=== PATIENT | female | born 1940 | race Caucasian/White ===

== ENCOUNTER 2018-01-27 10:39 | Inpatient (IN) ==
[2018-01-27] MEDS ORDERED: *Labetalol HCl Inj 100 MG/20 ML Vial PERIprocedural Use ONLY IV.PUSH ONE ×2 (11:54→12:10)
--- NOTE | 2018-01-27 11:54 | ED ---
HPI General Chief Complaint: Shortness of Breath/Dyspnea Stated Complaint: Weakness/Diabetic/SOB x today Time Seen by Provider: 01/27/18 11:08 Source: patient Mode of arrival: ambulatory Limitations: no limitations History of Present Illness Patient accompanied by her sister reports an episode of shortness of breath nausea diaphoresis acute in onset while riding around in a car to look at homes. Reports a history of diabetes. History of tobacco use in the past. No personal cardiac history. Diabetic. No family history of cardiac disease. States she is on a diuretic for fluid retention. Denies heart failure. On assessment of her medication she appears to have hypertension hyperlipidemia and COPD. She is on a beta-andrade. Reports medication compliance this morning. MD Complaint: Reports shortness of breath Onset (ago): hour(s) (1-2) Context: Reports other (Riding in the car looking at homes) Severity: moderate Consistency/Duration: constant Relieving factors: nothing Exacerbating factors: nothing Known history of: Reports diabetes Associated symptoms: Reports denies other symptoms Treatment prior to arrival: Reports none Related Data Home Medications Medication Instructions Recorded Confirmed L-Thyroxine 50 mcg PO DAILY 01/27/18 01/27/18 atenolol 50 mg PO DAILY 01/27/18 01/27/18 diclofenac sodium mg PO DIRECTED 01/27/18 diclofenac sodium [Voltaren] 2 g TOPICAL QID 01/27/18 01/27/18 furosemide [Lasix] 20 mg PO DAILY 01/27/18 01/27/18 glimepiride mg PO QAM 01/27/18 ipratropium-albuterol [Combivent 1 puff INHALATION QID 01/27/18 01/27/18 Respimat] liraglutide [Victoza 3-Evan] 0 SUBCUT .COMPLEX 01/27/18 01/27/18 lisinopril 20 mg PO DAILY 01/27/18 01/27/18 omeprazole 20 mg PO DAILY 01/27/18 01/27/18 pravastatin 10 mg PO DAILY 01/27/18 01/27/18 Allergies Allergy/AdvReac Type Severity Reaction Status Date / Time latex Allergy Severe rash Verified 01/27/18 10:47 levofloxacin Allergy Severe rash and Verified 01/27/18 10:47 swelling Review of Systems ROS: all other systems reviewed are negative [facility] Medical History Medical History GERD (gastroesophageal reflux disease) (Acute) HTN (hypertension) (Acute) High cholesterol (Acute) Hypothyroidism (Acute) Social History Social History Substance History: No History of Abuse Second Hand Smoke Exposure: No Smoking Status: Former smoker How Often Do You Have a Drink Containing Alcohol: Never Recent Travel in [facility] within the Last 8 Weeks: No Recent Out of Country Travel within the Last 8 Weeks: No Immunization History Tetanus Immunization: Unsure Exam Narrative Exam Narrative: CARDIOVASCULAR: Irregular, tachycardic, without murmurs, gallops , or rubs. RESPIRATORY: Breath sounds equal bilaterally. No accessory muscle use. GASTROINTESTINAL: Abdomen soft, normal bowel sounds, non-tender, nondistended. MUSCULOSKELETAL: No cyanosis, or edema. BACK: Nontender without obvious deformity. No CVA tenderness. Course Initial Documented Vital Signs Temperature 97.4 F L 01/27/18 10:48 Pulse Rate 108 H 01/27/18 10:48 Respiratory Rate 18 01/27/18 10:48 Blood Pressure 180/81 H 01/27/18 10:48 Pulse Oximetry 97 01/27/18 10:48 Last Documented Vital Signs Temperature 97.8 F 01/27/18 11:35 Pulse Rate 131 H 01/27/18 12:05 Respiratory Rate 18 01/27/18 12:05 Blood Pressure 106/48 L 01/27/18 12:05 Pulse Oximetry 93 L 01/27/18 12:05 Medical Decision Making MDM Narrative Medical decision making narrative: Originally thought we might be able to control this patient's rate with digoxin and anticoagulate with Xarelto however further evaluation of labs please be concerning for heart failure or possible pulmonary embolism with this new onset of A. fib. Spoke with Dr. Méndez who is in agreement, will admit with further workup for heart failure or possible pulmonary embolus Medical Screen Exam Complete: Yes Emergency Medical Condition: Yes Differential Diagnosis Differential Diagnosis: A. fib, acute myocardial infarction, CHF, dyspnea Medical Records Medical records reviewed: Yes I reviewed the patient's medical records. Lab Data Lab results reviewed: Yes I reviewed the patient's lab results. Result diagrams: 01/27/18 11:05 01/27/18 11:05 Lab Results 01/27/18 01/27/18 01/27/18 Range/Units 11:05 11:05 11:05 CBC w Diff Auto diff final WBC 6.8 (4.0-11.0) th/mm3 RBC 3.91 L (4.00-5.30) mil/mm3 Hgb 11.4 L (11.6-15.3) gm/dL Hct 34.3 L (35.0-46.0) % MCV 87.7 (80.0-100.0) fL MCH 29.1 (27.0-34.0) pg MCHC 33.2 (32.0-36.0) % RDW 15.7 (11.6-17.2) % Plt Count 162 (150-450) th/mm3 MPV 9.4 (7.0-11.0) fL Neut % (Auto) 74.3 H (16.0-70.0) % Lymph % (Auto) 14.3 (9.0-44.0) % Starr % (Auto) 7.9 (0.0-8.0) % Eos % (Auto) 2.7 (0.0-4.0) % Baso % (Auto) 0.8 (0.0-2.0) % Neut # (Auto) 5.0 (1.8-7.7) th/mm3 Lymph # (Auto) 1.0 (1.0-4.8) th/mm3 Starr # (Auto) 0.5 (0.0-0.9) th/mm3 Eos # (Auto) 0.2 (0.0-0.4) th/mm3 Baso # (Auto) 0.1 (0.0-0.2) th/mm3 WBC Differential . Differential Comment . D-Dimer Quant (PE/DVT) (0.00-0.50) mg/L FEU Sodium 141 (136-145) meq/L Potassium 3.6 (3.5-5.1) meq/L Chloride 109 H (98-107) meq/L Carbon Dioxide 21.9 (21.0-32.0) meq/L Anion Gap 10 (5-15) meq/L BUN 18 (7-18) mg/dL Creatinine 1.60 H (0.50-1.00) mg/dL Estimated GFR 31 L (>89) mL/min POC Glucose (68-110) mg/dl Random Glucose 187 H (74-106) mg/dL Calcium 7.7 L (8.5-10.1) mg/dL Total Bilirubin 0.3 (0.2-1.0) mg/dL AST 54 H (15-37) U/L ALT 55 H (10-53) U/L Alkaline Phosphatase 125 H (45-117) U/L Total Creatine Kinase 99 (26-192) U/L Troponin I Less than 0.02 L (0.02-0.05) ng/mL B-Natriuretic Peptide 648 H (0-100) pg/mL Total Protein 7.2 (6.4-8.2) g/dL Albumin 3.0 L (3.4-5.0) g/dL 01/27/18 01/27/18 Range/Units 11:05 11:09 CBC w Diff WBC (4.0-11.0) th/mm3 RBC (4.00-5.30) mil/mm3 Hgb (11.6-15.3) gm/dL Hct (35.0-46.0) % MCV (80.0-100.0) fL MCH (27.0-34.0) pg MCHC (32.0-36.0) % RDW (11.6-17.2) % Plt Count (150-450) th/mm3 MPV (7.0-11.0) fL Neut % (Auto) (16.0-70.0) % Lymph % (Auto) (9.0-44.0) % Starr % (Auto) (0.0-8.0) % Eos % (Auto) (0.0-4.0) % Baso % (Auto) (0.0-2.0) % Neut # (Auto) (1.8-7.7) th/mm3 Lymph # (Auto) (1.0-4.8) th/mm3 Starr # (Auto) (0.0-0.9) th/mm3 Eos # (Auto) (0.0-0.4) th/mm3 Baso # (Auto) (0.0-0.2) th/mm3 WBC Differential Differential Comment D-Dimer Quant (PE/DVT) 1.19 H (0.00-0.50) mg/L FEU Sodium (136-145) meq/L Potassium (3.5-5.1) meq/L Chloride (98-107) meq/L Carbon Dioxide (21.0-32.0) meq/L Anion Gap (5-15) meq/L BUN (7-18) mg/dL Creatinine (0.50-1.00) mg/dL Estimated GFR (>89) mL/min POC Glucose 190 H (68-110) mg/dl Random Glucose (74-106) mg/dL Calcium (8.5-10.1) mg/dL Total Bilirubin (0.2-1.0) mg/dL AST (15-37) U/L ALT (10-53) U/L Alkaline Phosphatase (45-117) U/L Total Creatine Kinase (26-192) U/L Troponin I (0.02-0.05) ng/mL B-Natriuretic Peptide (0-100) pg/mL Total Protein (6.4-8.2) g/dL Albumin (3.4-5.0) g/dL Imaging Data Radiologist's impression: Chest X-Ray 01/27/18 11:44 CONCLUSION: 1. Mild diffuse increased interstitial markings bilaterally consistent with minimal pulmonary vascular congestion or viral pneumonitis. Clinical correlation is recommended. 2. Cardiomegaly. ECG Data EKG Prior to Arrival: No Attestation: I personally reviewed and interpreted this ECG as follows: (New onset atrial fibrillation with RVR, concerns of lateral ischemia in V4 V5 V6, rate 126) Discharge Plan Discharge Disposition Patient Disposition: 30 Still Patient Discharge Condition Condition: Fair Discharge Details Diagnosis: Atrial fibrillation with rapid ventricular response, Elevated brain natriuretic peptide (BNP) level, Dyspnea Physicians Team ED Provider: Bhavin Gottlieb Primary Care Provider: Hansel Lr Rxs /Orders / Referrals /Forms Prescriptions: No Action lisinopril 20 mg Tablet 20 mg PO DAILY RF: 0 glimepiride 1 mg Tablet PO QAM RF: 0 pravastatin 10 mg Tablet 10 mg PO DAILY RF: 0 omeprazole 20 mg Capsule,Delayed Release(Dr/Ec) 20 mg PO DAILY RF: 0 diclofenac sodium 50 mg Tablet,Delayed Release (Dr/Ec) PO DIRECTED RF: 0 furosemide [Lasix] 20 mg Tablet 20 mg PO DAILY RF: 0 atenolol 50 mg Tablet 50 mg PO DAILY RF: 0 diclofenac sodium [Voltaren] 1 % Gel 2 g TOPICAL QID RF: 0 liraglutide [Victoza 3-Evan] 0.6 mg/0.1 mL (18 mg/3 mL) Pen Injector SUBCUT .COMPLEX RF: 0 ipratropium-albuterol [Combivent Respimat] 20-100 mcg/actuation Mist 1 puff INHALATION QID RF: 0 L-Thyroxine 50 mcg PO DAILY RF: 0 Status ED Status: With Doctor
[2018-01-27 12:05] LABS: Baso # (Auto) 0.1 th/mm3 (0.0-0.2); Baso % (Auto) 0.8 % (0.0-2.0); Eos # (Auto) 0.2 th/mm3 (0.0-0.4); Eos % (Auto) 2.7 % (0.0-4.0); Hematocrit 34.3 % (35.0-46.0); Hemoglobin 11.4 gm/dL (11.6-15.3); Lymph % (Auto) 14.3 % (9.0-44.0); Mean Corpuscular HGB Conc 33.2 % (32.0-36.0); Mean Corpuscular Hemoglobin 29.1 pg (27.0-34.0); Mean Corpuscular Volume 87.7 fL (80.0-100.0); Mean Platelet Volume 9.4 fL (7.0-11.0); Mono # (Auto) 0.5 th/mm3 (0.0-0.9); Mono % (Auto) 7.9 % (0.0-8.0); Neut % (Auto) 74.3 % (16.0-70.0); Platelet Count 162 th/mm3 (150-450); Red Blood Count 3.91 mil/mm3 (4.00-5.30); Red Cell Distribution Width 15.7 % (11.6-17.2); White Blood Count 6.8 th/mm3 (4.0-11.0)
[2018-01-27 12:15] LABS: Chloride 109 meq/L (98-107); Potassium 3.6 meq/L (3.5-5.1); Sodium 141 meq/L (136-145)
[2018-01-27 12:18] LABS: Calcium 7.7 mg/dL (8.5-10.1)
[2018-01-27 12:19] LABS: Anion Gap 10 meq/L (5-15); Blood Urea Nitrogen 18 mg/dL (7-18); Carbon Dioxide 21.9 meq/L (21.0-32.0); Glucose,Random 187 mg/dL (74-106)
[2018-01-27] MEDS ORDERED: Labetalol HCl Inj 100 MG/20 ML Vial IV.PUSH ONE (12:20)
[2018-01-27 12:22] LABS: Alanine Aminotransferase 55 U/L (10-53); Aspartate Aminotransferase 54 U/L (15-37); Glomerular Filtration Rate 31 mL/min (>89)
[2018-01-27 12:23] LABS: Total Protein 7.2 g/dL (6.4-8.2)
[2018-01-27 12:25] LABS: Alkaline Phosphatase 125 U/L (45-117)
[2018-01-27 12:26] LABS: Creatine Kinase 99 U/L (26-192)
--- NOTE | 2018-01-27 12:31 | XR ---
EXAM DATE: 01/27/2018 11:44 AM EDT AGE/SEX: 77 years / Female INDICATIONS: Short of breath. CLINICAL DATA: This is the patient's initial encounter. Patient reports that signs and symptoms have been present for 1 day and indicates a pain score of 4/10. MEDICAL/SURGICAL HISTORY: Diabetes. None. COMPARISON: . FINDINGS: The heart is enlarged. Mild diffuse increased interstitial markings are noted bilaterally consistent with minimal pulmonary vascular congestion or viral pneumonitis. Clinical correlation is recommended. CONCLUSION: 1. Mild diffuse increased interstitial markings bilaterally consistent with minimal pulmonary vascul ar congestion or viral pneumonitis. Clinical correlation is recommended. 2. Cardiomegaly. Electronically signed by: Wilfredo Peterson MD 01/27/2018 12:30 PM EDT
[2018-01-27] MEDS ORDERED: Bisacodyl 10 MG Supp RECTAL PRN (13:13)
[2018-01-27] MEDS ORDERED: Acetaminophen 325 MG Tablet PO PRN (13:13)
[2018-01-27] MEDS ORDERED: dilTIAZem Inj 125 MG in Sodium Chlor 0.9% Inj 100 ML IV.CONT PRN (13:16)
[2018-01-27] MEDS ORDERED: Dextrose 50% in Water 50 ML Vial IV.PUSH PRN (13:19)
--- NOTE | 2018-01-27 13:20 | P.HP ---
History of Present Illness Primary Care Physician: Hansel Lr MD Chief Complaint: Shortness of breath and fluid retention History of Present Illness: Is a 77-year-old female patient with a known medical history of diabetes who presented to the ED with complaints of shortness of breath. Patient states that she was driving around with her friend this morning looking at houses when she developed a sudden shortness of breath, feeling of warmth and feeling like she was going to pass out. Patient states that she has over the course of the week been feeling more fatigued, developed shortness of breath especially with exertion and lying flat, as well as associated nausea. She denies any recent illness including fever, chills, chest pain, abdominal pain, vomiting, diarrhea or dysuria. Her PCP is Dr. Haque, last seen a month ago, at that time her PCP did start her on some new diabetic medications. She denies any prior history of CHF, although does take Lasix for fluid retention. Patient does admit to increased swelling in her bilateral extremities. Denies any history of atrial fibrillation. Does not take any anticoagulants. Denies any recent echocardiogram. Upon exam patient is lying in bed comfortably with no dyspnea, cardiac telemetry showing heart rate in the 130s-140s, and labile. Blood pressure is stable. Will start on Cardizem IV drip and transfer to the ICU for closer monitoring. Cardiology has been consulted. Diuretics ordered. D-dimer elevated, VQ scan ordered. [employer] 648, creatinine 1.6/GFR 31, heart rate 130s, A. fib RVR. - Diagnosis (1) New onset atrial fibrillation (2) Atrial fibrillation with rapid ventricular response (3) Elevated brain natriuretic peptide (BNP) level (4) Dyspnea Review of Systems All other systems reviewed negative except as stated in HPI PMFSH - History History Provided By: Patient - Medical History Medical History: Medical History (Last Reviewed 01/27/18 @ 13:24 by Kenisha Freeman) GERD (gastroesophageal reflux disease) HTN (hypertension) High cholesterol Hypothyroidism - Surgical History Surgical History: Surgical History (Last Updated 01/27/18 @ 13:25 by Kenisha Freeman) H/O bilateral mastectomy Hx of cholecystectomy - Family History Family History: Family History (Last Updated 01/27/18 @ 13:24 by Kenisha Freeman) Other Family history in first degree relatives is unremarkable - Social History I have reviewed the patient's Social History: Yes - Tobacco History Second Hand Smoke Exposure: No Tobacco Use In Past 30 Days: No Smoking Status: Former smoker - Alcohol History How Often Do You Have a Drink Containing Alcohol: Never - Substance Use History Substance History: No History of Abuse - Travel History Recent Travel in the [place] Within the Last 8 Weeks: No Recent Travel Out of the Country Within the Last 8 Weeks: No - Immunization History Tetanus Immunization: Unsure Medications and Allergies Allergies Allergy/AdvReac Type Severity Reaction Status Date / Time latex Allergy Severe rash Verified 01/27/18 10:47 levofloxacin Allergy Severe rash and Verified 01/27/18 10:47 swelling Home Medications Medication Instructions Recorded Confirmed Type L-Thyroxine 50 mcg PO DAILY 01/27/18 01/27/18 History atenolol 50 mg PO DAILY 01/27/18 01/27/18 History diclofenac sodium mg PO DIRECTED 01/27/18 History diclofenac sodium [Voltaren] 2 g TOPICAL QID 01/27/18 01/27/18 History furosemide [Lasix] 20 mg PO DAILY 01/27/18 01/27/18 History glimepiride mg PO QAM 01/27/18 History ipratropium-albuterol [Combivent 1 puff INHALATION QID 01/27/18 01/27/18 History Respimat] liraglutide [Victoza 3-Evan] 0 SUBCUT .COMPLEX 01/27/18 01/27/18 History lisinopril 20 mg PO DAILY 01/27/18 01/27/18 History omeprazole 20 mg PO DAILY 01/27/18 01/27/18 History pravastatin 10 mg PO DAILY 01/27/18 01/27/18 History Exam Vital signs: Vital Signs 01/27/18 10:48 01/27/18 11:06 01/27/18 11:35 Temperature 97.4 F L 97.8 F Pulse Rate 108 H 120 H Respiratory Rate 18 18 Blood Pressure 180/81 H 174/104 H Pulse Oximetry 97 95 01/27/18 12:04 01/27/18 12:05 Temperature Pulse Rate 115 H 131 H Respiratory Rate 18 Blood Pressure 106/48 L Pulse Oximetry 95 93 L Intake & Output 01/26/18 01/27/18 01/27/18 18:59 06:59 18:59 Weight 106.8 kg Narrative: GENERAL: Well-developed, well-nourished obese female patient in NAD. On room air. SKIN: Warm and dry. No rash. HEAD: Normocephalic. Atraumatic. EYES: Pupils equal and round. No scleral icterus. No injection or drainage. ENT: No nasal bleeding or discharge. Mucous membranes pink and moist. NECK: Supple. Trachea midline. CARDIOVASCULAR: Irregularly irregular rhythm. No murmur appreciated. RESPIRATORY: No accessory muscle use. Clear to auscultation. Breath sounds equal bilaterally. GASTROINTESTINAL: Abdomen soft, non-tender, nondistended. Normoactive bowel sounds x4. MUSCULOSKELETAL: No obvious deformities. Extremities without clubbing, cyanosis. Bilateral lower extremity swelling 2+ edema. NEUROLOGICAL: Awake and alert. No obvious cranial nerve deficits. Motor grossly within normal limits. 5/5 muscle strength in bilateral upper and lower extremities. Normal speech. PSYCHIATRIC: Appropriate mood and affect; insight and judgment normal. Results - Labs CBC & Chem 7: 01/27/18 11:05 01/27/18 11:05 Labs: Laboratory Results - last 24 hr 01/27/18 01/27/18 01/27/18 11:05 11:05 11:05 CBC w Diff Auto diff final WBC 6.8 RBC 3.91 L Hgb 11.4 L Hct 34.3 L MCV 87.7 MCH 29.1 MCHC 33.2 RDW 15.7 Plt Count 162 MPV 9.4 Neut % (Auto) 74.3 H Lymph % (Auto) 14.3 Dale % (Auto) 7.9 Eos % (Auto) 2.7 Baso % (Auto) 0.8 Neut # (Auto) 5.0 Lymph # (Auto) 1.0 Dale # (Auto) 0.5 Eos # (Auto) 0.2 Baso # (Auto) 0.1 WBC Differential . Differential Comment . D-Dimer Quant (PE/DVT) Sodium 141 Potassium 3.6 Chloride 109 H Carbon Dioxide 21.9 Anion Gap 10 BUN 18 Creatinine 1.60 H Estimated GFR 31 L POC Glucose Random Glucose 187 H Calcium 7.7 L Total Bilirubin 0.3 AST 54 H ALT 55 H Alkaline Phosphatase 125 H Total Creatine Kinase 99 Troponin I Less than 0.02 L B-Natriuretic Peptide 648 H Total Protein 7.2 Albumin 3.0 L 01/27/18 01/27/18 11:05 11:09 CBC w Diff WBC RBC Hgb Hct MCV MCH MCHC RDW Plt Count MPV Neut % (Auto) Lymph % (Auto) Dale % (Auto) Eos % (Auto) Baso % (Auto) Neut # (Auto) Lymph # (Auto) Dale # (Auto) Eos # (Auto) Baso # (Auto) WBC Differential Differential Comment D-Dimer Quant (PE/DVT) 1.19 H Sodium Potassium Chloride Carbon Dioxide Anion Gap BUN Creatinine Estimated GFR POC Glucose 190 H Random Glucose Calcium Total Bilirubin AST ALT Alkaline Phosphatase Total Creatine Kinase Troponin I B-Natriuretic Peptide Total Protein Albumin - Imaging Impressions Chest X-Ray 01/27/18 11:44 CONCLUSION: 1. Mild diffuse increased interstitial markings bilaterally consistent with minimal pulmonary vascular congestion or viral pneumonitis. Clinical correlation is recommended. 2. Cardiomegaly. Caprini VTE Risk Assessment Caprini VTE Risk Assessment: Moderate/High Risk (score >= 2) Caprini Risk Assessment Model: Point Value = 1 Point Value = 2 Point Value = 3 Point Value = 5 Age 41-60 Minor surgery BMI > 25 kg/m2 Swollen legs Varicose veins or History of unexplained or recurrent spontaneous Oral contraceptives or hormone replacement Sepsis (< 1 month) Serious lung disease, including pneumonia (< 1 month) Abnormal pulmonary function Acute myocardial infarction Congestive heart failure (< 1 month) History of inflammatory bowel disease Medical patient at bed rest Age 61-74 Arthroscopic surgery Major open surgery (> 45 min) Laparoscopic surgery (> 45 min) Malignancy Confined to bed (> 72 hours) Immobilizing plaster cast Central venous access Age >= 75 History of VTE Family history of VTE Factor V Leiden Prothrombin [id number] Lupus anticoagulant Anticardiolipin antibodies Elevated serum homocysteine Heparin-induced thrombocytopenia Other congenital or acquired thrombophilia Stroke (< 1 month) Elective arthroplasty Hip, pelvis, or leg fracture Acute spinal cord injury (< 1 month) Prophylaxis Regimen: Total Risk Factor Score Risk Level Prophylaxis Regimen 0-1 Low Early ambulation 2 Moderate Order ONE of the following: *Sequential Compression Device (SCD) *Heparin 5000 units SQ BID 3-4 Higher Order ONE of the following medications: *Heparin 5000 units SQ TID *Enoxaparin/Lovenox 40 mg SQ daily (WT < 150 kg, CrCl > 30 mL/min) *Enoxaparin/Lovenox 30 mg SQ daily (WT < 150 kg, CrCl > 10-29 mL/min) *Enoxaparin/Lovenox 30 mg SQ BID (WT < 150 kg, CrCl > 30 mL/min) AND/OR *Sequential Compression Device (SCD) 5 or more Highest Order ONE of the following medications: *Heparin 5000 units SQ TID (Preferred with Epidurals) *Enoxaparin/Lovenox 40 mg SQ daily (WT < 150 kg, CrCl > 30 mL/min) *Enoxaparin/Lovenox 30 mg SQ daily (WT < 150 kg, CrCl > 10-29 mL/min) *Enoxaparin/Lovenox 30 mg SQ BID (WT < 150 kg, CrCl > 30 mL/min) AND *Sequential Compression Device (SCD) Assessment and Plan - Assessment (1) New onset atrial fibrillation Code(s): I48.91 - Unspecified atrial fibrillation Status: Acute (2) Atrial fibrillation with rapid ventricular response Code(s): I48.91 - Unspecified atrial fibrillation Status: Acute (3) Elevated brain natriuretic peptide (BNP) level Code(s): R79.89 - Other specified abnormal findings of blood chemistry Status : Acute (4) Dyspnea Code(s): R06.00 - Dyspnea, unspecified Status: Acute - Plan This is a 77-year-old female patient with: New onset atrial fibrillation currently in RVR Elevated d-dimer suspect secondary to above rule out pulmonary embolism -Patient presented with a heart rate in the 130s with associated shortness of breath. -EKG reviewed showing controlled heart rate with A. fib RVR. -Cardizem drip ordered, with bolus. Transfer to ICU for closer monitoring. -Chest x-ray reviewed showing mildly diffuse increased interstitial markings bilaterally consistent with minimal pulmonary vascular congestion. Echo ordered and pending. Audio megaly is seen. -VQ scan ordered to rule out PE. Will follow. Elevated d-dimer suspect secondary to A. fib RVR although patient is at high risk for pulmonary embolism especially with presentation of shortness of breath. -Consult placed to cardiology, input recommendations pending. 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 Appreciate input regarding anticoagulation for discharge. -Supportive care. Close monitoring. Acute on chronic? kidney failure -Suspect secondary to fluid retention and possible new onset CHF. -Creatinine 1.6/GFR 31 on presentation. Upon review of records, patient does not seem to have a history of chronic kidney disease. Although, patient does state that her PCP recently placed her on Lasix for fluid retention and possible problems with her kidney. -Expect improvement after diuretics. Will continue to monitor. BMP in a.m. History of fluid retention on Lasix Probable new onset CHF -Will obtain echocardiogram. BNP 648 upon presentation. Lasix 40 mg IV x1 now. Scheduled 40 mg IV daily. Monitor intake and output. Type 2 diabetes mellitus, chronic: Accu-Chek before meals at bedtime, sliding scale, cover as needed. Monitor blood sugar trends. Hold diabetic p.o. medications from home. DVT prophylaxis: SCDs. Heparin. (4) Dyspnea Qualifiers: Dyspnea type: shortness of breath Qualified Code(s): R06.02 - Shortness of breath; R06.00 - Dyspnea, unspecified; R06.01 - Orthopnea
[2018-01-27 14:35] LABS: Bilirubin,Urine Negative (Negative); Clarity,Urine Clear (Clear); Glucose,Urine (UA) Negative (Negative); Leukocyte Esterase,Urine Negative (Negative); Nitrite,Urine Negative (Negative); Urobilinogen,Urine 0.2 mg/dL (Less than 2)
[2018-01-27 14:37] LABS: Color,Urine Straw (Yellw/Straw)
[2018-01-27] MEDS: Heparin - SQ 10,000 UNITS/ML Vial SQ SCH (14:44)
[2018-01-27 14:46] LABS: Transitional Epi Cells,Urine 0-5 /hpf; WBC,Urine 0-5 /hpf (0-5)
[2018-01-27] MEDS ORDERED: dilTIAZem 30 MG Tablet PO SCH (16:00)
--- NOTE | 2018-01-27 16:07 | NM ---
EXAM DATE: 01/27/2018 3:40 PM EDT AGE/SEX: 77 years / Female INDICATIONS: Dyspnea with nausea. CLINICAL DATA: This is the patient's initial encounter. Patient reports that signs and symptoms have been present for 1 day and indicates a pain score of 0/10. MEDICAL/SURGICAL HISTORY: Hypertension. Hypothyroidism. Gastroesophageal reflux disease. Chol ecystectomy. Mastectomy, bilateral. COMPARISON: No prior exams available for comparison. DOSE: 1.9 mCi Tc99m DTPA aerosol 8.6 mCi Tc99m MAA IV TECHNIQUE: Following five minutes of tidal breathing of DTPA aerosol, planar images of the lungs wer e performed in eight projections. The patient was then injected with MAA, and eight-view perfusion s can was performed. FINDINGS: There is a homogeneous pattern of aerosol delivery to the periphery of both lungs. No focal ventilat ory defects are seen. The perfusion lung scan demonstrates a homogenous pattern of uptake in both lungs. No segmental or s ubsegmental defects are seen. CONCLUSION: 1. No focal perfusion defects to suggest pulmonary embolus. Low probability for pulmonary embolus. Electronically signed by: Ezequiel Be MD 01/27/2018 4:05 PM EDT
[2018-01-27] MEDS: Insulin NovoLOG Aspart Correctional Sugar Inj SQ SCH ×2 (17:21→20:59)
[2018-01-27] MEDS: dilTIAZem 30 MG Tablet PO SCH ×2 (18:17→20:55)
--- NOTE | 2018-01-27 19:36 | ECG ---
Date Performed: 01/27/2018 Time Performed: 11:07:03 PTAGE: 77 years EKG: ATRIAL FIBRILLATION WITH RAPID VENTRICULAR RESPONSE ST DEVIATION AND MODERATE T-WAVE ABNORM ALITY ABNORMAL ECG Compared to PREVIOUS TRACING , AF and ST-T changes present DOCTOR: Magno Short Interpretating Date/Time 01/27/2018 19:34:40
[2018-01-28] MEDS: Heparin - SQ 10,000 UNITS/ML Vial SQ SCH ×2 (02:00→13:54)
[2018-01-28] MEDS: Levothyroxine 75 MCG Tablet PO SCH (05:30)
[2018-01-28] MEDS ORDERED: Levothyroxine 50 MCG Tablet PO SCH (06:00)
[2018-01-28 06:14] LABS: Baso % (Auto) 0.5 % (0.0-2.0); Eos # (Auto) 0.1 th/mm3 (0.0-0.4); Eos % (Auto) 1.1 % (0.0-4.0); Hematocrit 32.5 % (35.0-46.0); Hemoglobin 10.1 gm/dL (11.6-15.3); Lymph # (Auto) 1.1 th/mm3 (1.0-4.8); Lymph % (Auto) 14.1 % (9.0-44.0); Mean Corpuscular HGB Conc 31.2 % (32.0-36.0); Mean Corpuscular Hemoglobin 27.7 pg (27.0-34.0); Mean Corpuscular Volume 88.7 fL (80.0-100.0); Mean Platelet Volume 8.4 fL (7.0-11.0); Mono # (Auto) 0.6 th/mm3 (0.0-0.9); Mono % (Auto) 7.7 % (0.0-8.0); Neut # (Auto) 5.9 th/mm3 (1.8-7.7); Neut % (Auto) 76.6 % (16.0-70.0); Platelet Count 174 th/mm3 (150-450); Red Blood Count 3.66 mil/mm3 (4.00-5.30); Red Cell Distribution Width 14.9 % (11.6-17.2); White Blood Count 7.7 th/mm3 (4.0-11.0)
[2018-01-28 06:22] LABS: Potassium 3.4 meq/L (3.5-5.1)
[2018-01-28 06:25] LABS: Calcium 7.8 mg/dL (8.5-10.1); Carbon Dioxide 25.4 meq/L (21.0-32.0)
--- NOTE | 2018-01-28 08:08 | P.PNIM ---
Subjective Interval history: Follow up CHF exac and new onset a fib. Patient seen and examined, sitting up in bed comfortably no apparent distress. She does state she feels improved. Denies any chest pain or shortness of breath. VSS. Afebrile. Awaiting cardiology consult and ECHO today. Physical Exam Vital signs: Vital Signs 01/27/18 10:48 01/27/18 11:06 01/27/18 11:35 Temperature 97.4 F L 97.8 F Pulse Rate 108 H 120 H Respiratory Rate 18 18 Blood Pressure 180/81 H 174/104 H Pulse Oximetry 97 95 01/27/18 12:04 01/27/18 12:05 01/27/18 13:24 Temperature Pulse Rate 115 H 131 H 134 H Respiratory Rate 18 18 Blood Pressure 106/48 L 170/65 H Pulse Oximetry 95 93 L 95 01/27/18 13:34 01/27/18 13:39 01/27/18 14:27 Temperature Pulse Rate 96 H 107 H 67 Respiratory Rate 18 18 18 Blood Pressure 107/55 L 115/77 166/63 H Pulse Oximetry 95 96 01/27/18 15:06 01/27/18 16:12 01/27/18 16:15 Temperature 97.1 F L Pulse Rate 62 72 Respiratory Rate 29 H Blood Pressure 169/65 H 150/73 H Pulse Oximetry 98 97 99 01/27/18 16:16 01/27/18 19:32 01/27/18 19:39 Temperature 97.5 F L Pulse Rate 56 L 77 Respiratory Rate 16 22 Blood Pressure 180/80 H Pulse Oximetry 97 97 01/27/18 19:51 01/27/18 23:55 01/28/18 04:00 Temperature 98.4 F 98.1 F Pulse Rate 67 79 68 Respiratory Rate 16 20 20 Blood Pressure 175/57 H 166/86 H Pulse Oximetry 96 95 95 01/28/18 07:22 Temperature Pulse Rate 72 Respiratory Rate 19 Blood Pressure Pulse Oximetry 97 Intake & Output 01/27/18 01/28/18 01/28/18 18:59 06:59 18:59 Intake Total 561 / 561 120 / 120 Output Total 700 / 700 Balance -139 / -139 120 / 120 Weight 105 kg 103.6 kg Intake: IV Cardizem Inj 125 MG In NS Inj 100 ML @ 5 MG/HR 5 mls/hr IV. CONT TITRATE PRN Rx#:[id number] Oral 550 / 550 120 / 120 Output: Urine 700 / 700 Other: # Voids 3 # Bowel Movements 0 Weight On Admission 105 kg Narrative: GENERAL: Well-developed, well-nourished obese female patient in NAD. On room air. SKIN: Warm and dry. No rash. HEAD: Normocephalic. Atraumatic. EYES: Pupils equal and round. No scleral icterus. No injection or drainage. ENT: No nasal bleeding or discharge. Mucous membranes pink and moist. NECK: Supple. Trachea midline. CARDIOVASCULAR: SR, regular rate, S1 and S2 present. No murmur appreciated. RESPIRATORY: No accessory muscle use. Clear to auscultation. Breath sounds equal bilaterally. GASTROINTESTINAL: Abdomen soft, non-tender, nondistended. Normoactive bowel sounds x4. MUSCULOSKELETAL: No obvious deformities. Extremities without clubbing, cyanosis. Bilateral lower extremity swelling 2+ edema. NEUROLOGICAL: Awake and alert. No obvious cranial nerve deficits. Motor grossly within normal limits. 5/5 muscle strength in bilateral upper and lower extremities. Normal speech. PSYCHIATRIC: Appropriate mood and affect; insight and judgment normal. Results - Labs CBC & Chem 7: 01/28/18 05:50 01/28/18 05:50 Laboratory Results - last 24 hr 01/27/18 01/27/18 01/27/18 11:05 11:05 11:05 CBC w Diff Auto diff final WBC 6.8 RBC 3.91 L Hgb 11.4 L Hct 34.3 L MCV 87.7 MCH 29.1 MCHC 33.2 RDW 15.7 Plt Count 162 MPV 9.4 Neut % (Auto) 74.3 H Lymph % (Auto) 14.3 [place] % (Auto) 7.9 Eos % (Auto) 2.7 Baso % (Auto) 0.8 Neut # (Auto) 5.0 Lymph # (Auto) 1.0 [place] # (Auto) 0.5 Eos # (Auto) 0.2 Baso # (Auto) 0.1 WBC Differential . Differential Comment . D-Dimer Quant (PE/DVT) Sodium 141 Potassium 3.6 Chloride 109 H Carbon Dioxide 21.9 Anion Gap 10 BUN 18 Creatinine 1.60 H Estimated GFR 31 L POC Glucose Random Glucose 187 H Calcium 7.7 L Total Bilirubin 0.3 AST 54 H ALT 55 H Alkaline Phosphatase 125 H Total Creatine Kinase 99 Troponin I Less than 0.02 L B-Natriuretic Peptide 648 H Total Protein 7.2 Albumin 3.0 L TSH Ur Collection Type Urine Color Urine Clarity Urine pH Ur Specific [place] Urine Protein Urine Glucose (UA) Urine Ketones Urine Occult Blood Urine Nitrate Urine Bilirubin Urine Urobilinogen Ur Leukocyte Esterase Urine WBC Ur Transition Epith Cell Micro UA Comment Ur Microscopic Review Urine Culture Comments 01/27/18 01/27/18 01/27/18 11:05 11:05 11:09 CBC w Diff WBC RBC Hgb Hct MCV MCH MCHC RDW Plt Count MPV Neut % (Auto) Lymph % (Auto) [place] % (Auto) Eos % (Auto) Baso % (Auto) Neut # (Auto) Lymph # (Auto) [place] # (Auto) Eos # (Auto) Baso # (Auto) WBC Differential Differential Comment D-Dimer Quant (PE/DVT) 1.19 H Sodium Potassium Chloride Carbon Dioxide Anion Gap BUN Creatinine Estimated GFR POC Glucose 190 H Random Glucose Calcium Total Bilirubin AST ALT Alkaline Phosphatase Total Creatine Kinase Troponin I B-Natriuretic Peptide Total Protein Albumin TSH 12.700 H Ur Collection Type Urine Color Urine Clarity Urine pH Ur Specific [place] Urine Protein Urine Glucose (UA) Urine Ketones Urine Occult Blood Urine Nitrate Urine Bilirubin Urine Urobilinogen Ur Leukocyte Esterase Urine WBC Ur Transition Epith Cell Micro UA Comment Ur Microscopic Review Urine Culture Comments 01/27/18 01/27/18 01/27/18 14:24 15:03 20:57 CBC w Diff WBC RBC Hgb Hct MCV MCH MCHC RDW Plt Count MPV Neut % (Auto) Lymph % (Auto) [place] % (Auto) Eos % (Auto) Baso % (Auto) Neut # (Auto) Lymph # (Auto) [place] # (Auto) Eos # (Auto) Baso # (Auto) WBC Differential Differential Comment D-Dimer Quant (PE/DVT) Sodium Potassium Chloride Carbon Dioxide Anion Gap BUN Creatinine Estimated GFR POC Glucose 260 H 129 H Random Glucose Calcium Total Bilirubin AST ALT Alkaline Phosphatase Total Creatine Kinase Troponin I B-Natriuretic Peptide Total Protein Albumin TSH Ur Collection Type Clean catch Urine Color Straw Urine Clarity Clear Urine pH 6.0 Ur Specific [place] 1.020 Urine Protein Negative Urine Glucose (UA) Negative Urine Ketones Negative Urine Occult Blood Negative Urine Nitrate Negative Urine Bilirubin Negative Urine Urobilinogen 0.2 Ur Leukocyte Esterase Negative Urine WBC 0-5 Ur Transition Epith Cell 0-5 Micro UA Comment Culture not ind Ur Microscopic Review Microscopic reviewed Urine Culture Comments Culture not ind 01/28/18 01/28/18 01/28/18 05:50 05:50 07:56 CBC w Diff Auto diff final WBC 7.7 RBC 3.66 L Hgb 10.1 L Hct 32.5 L MCV 88.7 MCH 27.7 MCHC 31.2 L RDW 14.9 Plt Count 174 MPV 8.4 Neut % (Auto) 76.6 H Lymph % (Auto) 14.1 [place] % (Auto) 7.7 Eos % (Auto) 1.1 Baso % (Auto) 0.5 Neut # (Auto) 5.9 Lymph # (Auto) 1.1 [place] # (Auto) 0.6 Eos # (Auto) 0.1 Baso # (Auto) 0.0 WBC Differential . Differential Comment . D-Dimer Quant (PE/DVT) Sodium 143 Potassium 3.4 L Chloride 108 H Carbon Dioxide 25.4 Anion Gap 10 BUN 19 H Creatinine 1.40 H Estimated GFR 37 L POC Glucose 131 H Random Glucose 105 Calcium 7.8 L Total Bilirubin AST ALT Alkaline Phosphatase Total Creatine Kinase Troponin I B-Natriuretic Peptide Total Protein Albumin TSH Ur Collection Type Urine Color Urine Clarity Urine pH Ur Specific [place] Urine Protein Urine Glucose (UA) Urine Ketones Urine Occult Blood Urine Nitrate Urine Bilirubin Urine Urobilinogen Ur Leukocyte Esterase Urine WBC Ur Transition Epith Cell Micro UA Comment Ur Microscopic Review Urine Culture Comments - Imaging Impressions Pulmonary Perfusion Imaging 01/27/18 00:00 CONCLUSION: 1. No focal perfusion defects to suggest pulmonary embolus. Low probability for pulmonary embolus. Chest X-Ray 01/27/18 11:44 CONCLUSION: 1. Mild diffuse increased interstitial markings bilaterally consistent with minimal pulmonary vascular congestion or viral pneumonitis. Clinical correlation is recommended. 2. Cardiomegaly. Assessment and Plan - Assessment (1) New onset atrial fibrillation Code(s): I48.91 - Unspecified atrial fibrillation Status: Acute (2) Atrial fibrillation with rapid ventricular response Code(s): I48.91 - Unspecified atrial fibrillation Status: Acute (3) Elevated brain natriuretic peptide (BNP) level Code(s): R79.89 - Other specified abnormal findings of blood chemistry Status : Acute (4) Dyspnea Code(s): R06.00 - Dyspnea, unspecified Status: Acute - Plan This is a 77-year-old female patient with: New onset atrial fibrillation currently in RVR Elevated d-dimer suspect secondary to above ruled out pulmonary embolism with VQ scan -Patient presented with a heart rate in the 130s with associated shortness of breath. -EKG reviewed showing controlled heart rate with A. fib RVR. Now in SR. -Cardizem drip ordered, with bolus. this was weaned off and switched to oral. Transfered to ICU for closer monitoring. -Chest x-ray reviewed showing mildly diffuse increased interstitial markings bilaterally consistent with minimal pulmonary vascular congestion. Echo ordered and pending. Cardiomegaly is seen. -VQ scan ordered and ruled out PE. Elevated d-dimer suspect secondary to A. fib RVR although patient is at high risk for pulmonary embolism especially with presentation of shortness of breath. -Consult placed to cardiology, input recommendations pending. 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 Appreciate input regarding anticoagulation for discharge. -Supportive care. Close monitoring. Acute on chronic? kidney failure -Suspect secondary to fluid retention and possible new onset CHF. -Creatinine 1.6/GFR 31 on presentation. Upon review of records, patient does not seem to have a history of chronic kidney disease. Although, patient does state that her PCP recently placed her on Lasix for fluid retention and possible problems with her kidney. Labs improved today. -Expect improvement after diuretics. Will continue to monitor. History of fluid retention on Lasix Probable new onset CHF Bilateral lower extremity swelling -Will obtain echocardiogram, pending. BNP 648 upon presentation. Scheduled 40 mg IV daily. Monitor intake and output. Type 2 diabetes mellitus, chronic: Accu-Chek before meals at bedtime, sliding scale, cover as needed. Monitor blood sugar trends. Hold diabetic p.o. medications from home. DVT prophylaxis: SCDs. Heparin. Discharge Planning: Await ECHO and cardio consult. (4) Dyspnea Qualifiers: Dyspnea type: shortness of breath Qualified Code(s): R06.02 - Shortness of breath; R06.00 - Dyspnea, unspecified; R06.01 - Orthopnea
[2018-01-28] MEDS: dilTIAZem 30 MG Tablet PO SCH ×4 (08:25→20:22)
[2018-01-28] MEDS: Insulin NovoLOG Aspart Correctional Sugar Inj SQ SCH ×4 (08:29→20:28)
[2018-01-28] MEDS: Lisinopril 20 MG Tablet PO SCH (08:38)
--- NOTE | 2018-01-28 21:47 | ECHRPT ---
Indication: CONCLUSIONS The left ventricular systolic function is normal with an estimated ejection fraction in the range of 60-65%. Normal left ventricular size. Mild concentric left ventricular hypertrophy. No regional wall motion abnormalities are present. Mild thickening of the mitral valve leaflets. Trace mitral valve regurgitation. Calcification of the posterior mitral valve leaflet. Mild mitral annular calcification. Aortic valve sclerosis is present. There is trace tricuspid valve regurgitation. The estimated pulmonary arterial pressure is 40 mmHg. BP: / HR: Rhythm: Sinus MEASUREMENTS (Male / Female) Normal Values Technical Quality:Fair 2D ECHO LV Diastolic Diameter PLAX 4.3 cm 4.2 - 5.9 / 3.9 - 5.3 cm LV Systolic Diameter PLAX 3.1 cm IVS Diastolic Thickness 1.3 cm 0.6 - 1.0 / 0.6 - 0.9 cm LVPW Diastolic Thickness 1.3 cm 0.6 - 1.0 / 0.6 - 0.9 cm LV Relative Wall Thickness 0.6 LVOT Diameter 1.6 cm LA Systolic Diameter LX 3.8 cm 3.0 - 4.0 / 2.7 - 3.8 cm LV Ejection Fraction MOD 4C 61.1 % LV Ejection Fraction 4C AL 64.5 % M-MODE Aortic Root Diameter MM 2.5 cm LA Systolic Diameter MM 3.7 cm LA Ao Ratio MM 1.5 AV Cusp Separation MM 1.5 cm DOPPLER AV Peak Velocity 111.0 cm/s AV Peak Gradient 4.9 mmHg LVOT Peak Velocity 95.3 cm/s LVOT Peak Gradient 3.6 mmHg AV Area Cont Eq pk 1.7 cm MV Area PHT 6.7 cm Mitral E Point Velocity 115.0 cm/s Mitral A Point Velocity 94.8 cm/s Mitral E to A Ratio 1.2 LV E' Lateral Velocity 5.2 cm/s Mitral E to LV E' Lateral Ratio 22.2 LV E' Septal Velocity 5.1 cm/s Mitral E to LV E' Septal Ratio 22.7 TR Peak Velocity 273.0 cm/s TR Peak Gradient 29.8 mmHg Right Atrial Pressure 10.0 mmHg Pulmonary Artery Systolic Pressu 39.8 mmHg Right Ventricular Systolic Press 39.8 mmHg PV Peak Velocity 115.0 cm/s PV Peak Gradient 5.3 mmHg FINDINGS LEFT VENTRICLE The left ventricular systolic function is normal with an estimated ejection fraction in the range of 60-65%. Normal left ventricular size. Mild concentric left ventricular hypertrophy. No regional wall motion abnormalities are present. RIGHT VENTRICLE Normal right ventricular size and systolic function. LEFT ATRIUM The left atrial size is normal. RIGHT ATRIUM The right atrial size is normal. ATRIAL SEPTUM Normal atrial septal thickness without atrial level shunting by limited color doppler interrogation. AORTA The aortic root and proximal ascending aorta are normal in size on limited imaging. MITRAL VALVE Mild thickening of the mitral valve leaflets. Trace mitral valve regurgitation. Calcification of the posterior mitral valve leaflet. Mild mitral annular calcification. AORTIC VALVE Trileaflet aortic valve. Aortic valve sclerosis is present. TRICUSPID VALVE Structurally normal tricuspid valve. There is trace tricuspid valve regurgitation. The estimated pulmonary arterial pressure is 39.8 mmHg. PULMONARY VALVE Trivial pulmonary valve regurgitation. VESSELS The inferior vena cava is normal in size. PERICARDIUM No pericardial effusion. Magno Short MD, FACC (Electronically Signed) Final Date:28 January 2018 21:46
[2018-01-28 22:33] LABS: Potassium 3.3 meq/L (3.5-5.1)
[2018-01-28 22:36] LABS: Calcium 8.2 mg/dL (8.5-10.1); Carbon Dioxide 24.6 meq/L (21.0-32.0); Magnesium 1.3 mg/dL (1.5-2.5)
[2018-01-28] MEDS ORDERED: hydrALAZINE HCl Inj 20 MG/ML Vial IV.PUSH ONE (22:55)
[2018-01-28] MEDS ORDERED: Potassium Chloride 25 MEQ Effervescent Tablet PO ONE (22:57)
[2018-01-28] MEDS: Potassium Chlor 10 mEq Premix 10 MEQ/100 ML PIGGYBACK IV.SIG SCH (23:11)
[2018-01-29] MEDS ORDERED: Magnesium Sulfate Inj 2 GM in Sodium Chlor 0.9% Inj 96 ML IV.SIG ONE ×2
[2018-01-29] MEDS: Potassium Chlor 10 mEq Premix 10 MEQ/100 ML PIGGYBACK IV.SIG SCH ×2 (00:20→01:26)
[2018-01-29 04:41] LABS: Baso # (Auto) 0.3 th/mm3 (0.0-0.2); Baso % (Auto) 2.9 % (0.0-2.0); Eos # (Auto) 0.1 th/mm3 (0.0-0.4); Eos % (Auto) 0.9 % (0.0-4.0); Hematocrit 33.1 % (35.0-46.0); Hemoglobin 10.8 gm/dL (11.6-15.3); Lymph # (Auto) 1.1 th/mm3 (1.0-4.8); Lymph % (Auto) 11.6 % (9.0-44.0); Mean Corpuscular HGB Conc 32.5 % (32.0-36.0); Mean Corpuscular Hemoglobin 28.8 pg (27.0-34.0); Mean Corpuscular Volume 88.5 fL (80.0-100.0); Mean Platelet Volume 8.6 fL (7.0-11.0); Mono # (Auto) 0.9 th/mm3 (0.0-0.9); Mono % (Auto) 9.7 % (0.0-8.0); Neut # (Auto) 6.7 th/mm3 (1.8-7.7); Neut % (Auto) 74.9 % (16.0-70.0); Platelet Count 183 th/mm3 (150-450); Red Blood Count 3.74 mil/mm3 (4.00-5.30); White Blood Count 9.1 th/mm3 (4.0-11.0)
[2018-01-29 04:48] LABS: Potassium 3.8 meq/L (3.5-5.1)
[2018-01-29 04:51] LABS: Carbon Dioxide 25.4 meq/L (21.0-32.0)
[2018-01-29] MEDS: Levothyroxine 75 MCG Tablet PO SCH (05:35)
--- NOTE | 2018-01-29 07:31 | P.CONCA ---
History of Present Illness Primary Care Provider: Hansel Lr MD Chief Complaint: Shortness of breath and fluid retention PMFSH - History History Provided By: Patient, Family Member - Medical History Medical History: Medical History (Last Reviewed 01/28/18 @ 07:53 by Rita Ding) GERD (gastroesophageal reflux disease) HTN (hypertension) High cholesterol Hypothyroidism - Surgical History Surgical History: Surgical History (Last Reviewed 01/28/18 @ 07:53 by Rita Ding) H/O bilateral mastectomy Hx of cholecystectomy - Family History Family History: Family History (Last Updated 01/27/18 @ 13:24 by Kenisha Freeman) Other Family history in first degree relatives is unremarkable - Tobacco History Second Hand Smoke Exposure: No Tobacco Use In Past 30 Days: No Smoking Status: Former smoker - Alcohol History How Often Do You Have a Drink Containing Alcohol: Never - Substance Use History Substance History: No History of Abuse - Travel History Recent Travel in the [place] Within the Last 8 Weeks: No Recent Travel Out of the Country Within the Last 8 Weeks: No - Immunization History Tetanus Immunization: >5 Years Hx Influenza Vaccine This Season: Yes Medications and Allergies Active Medications: Active Medications Acetaminophen (Tylenol) 650 mg PO Q4H PRN PRN Reason: Temp > 100.4 Al Hydroxide/Mg Hydroxide (Milk Of Magnesia Liq) 30 ml PO Q12H PRN PRN Reason: Mild Constipation Albuterol (Duoneb Neb (Mariam)) 1 ampul NEB QID NEB MARIAM Last Admin: 01/28/18 19:37 Dose: 1 ampul Apixaban (Eliquis) 5 mg PO BID MARIAM Last Admin: 01/28/18 20:22 Dose: 5 mg Bisacodyl (Dulcolax Supp) 10 mg RECTAL DAILY PRN PRN Reason: SEVERE CONSITIPATION Clonidine HCl (Catapres) 0.1 mg PO Q6H PRN PRN Reason: SBP>160, DBP>90 Last Admin: 01/29/18 03:46 Dose: 0.1 mg Dextrose (D50w Vial) 50 ml IV.PUSH UNSCH PRN PRN Reason: PER HYPOGLYCEMIA PROTOCOL Diltiazem HCl (Cardizem Cd 24hr) 240 mg PO DAILY MARIAM Furosemide (Lasix Inj) 40 mg IV.PUSH DAILY MARIAM Last Admin: 01/28/18 17:03 Dose: 40 mg Glucagon (Glucagon Inj) 1 mg OTHER PRN PRN PRN Reason: for Hypoglycemia Protocol Insulin Aspart (Novolog Insulin Correctional Sugar Inj) 0 unit SQ ACHS [facility]; Protocol Last Admin: 01/28/18 20:28 Dose: 1 unit Lactulose (Lactulose Liq) 30 ml PO DAILY PRN PRN Reason: SEVERE CONSITIPATION Levothyroxine Sodium (Synthroid) 75 mcg PO DAILY@0600 [facility] Last Admin: 01/29/18 05:35 Dose: 75 mcg Lisinopril (Prinivil) 20 mg PO DAILY [facility] Last Admin: 01/28/18 08:38 Dose: 20 mg Ondansetron HCl (Zofran Inj) 4 mg IV.PUSH Q6H PRN PRN Reason: NAUSEA OR VOMITING Pantoprazole Sodium (Protonix) 40 mg PO DAILY [facility] Last Admin: 01/28/18 08:25 Dose: 40 mg Pravastatin Sodium (Pravachol) 10 mg PO DAILY [facility] Last Admin: 01/28/18 08:25 Dose: 10 mg Sennosides (Senokot) 17.2 mg PO Q12H PRN PRN Reason: Moderate Constipation Allergies Allergy/AdvReac Type Severity Reaction Status Date / Time latex Allergy Severe rash Verified 01/27/18 10:47 levofloxacin Allergy Severe rash and Verified 01/27/18 10:47 swelling Home Medications Medication Instructions Recorded Confirmed Type L-Thyroxine 50 mcg PO DAILY 01/27/18 01/27/18 History atenolol 50 mg PO DAILY 01/27/18 01/27/18 History diclofenac sodium 75 mg PO BID 01/27/18 01/27/18 History diclofenac sodium [Voltaren] 2 g TOPICAL QID 01/27/18 01/27/18 History furosemide [Lasix] 20 mg PO DAILY 01/27/18 01/27/18 History glimepiride 2 mg PO QAM 01/27/18 01/27/18 History ipratropium-albuterol [Combivent 1 puff INHALATION QID 01/27/18 01/27/18 History Respimat] levothyroxine [Synthroid] 50 mcg PO DAILY 01/27/18 01/27/18 History liraglutide [Victoza 3-Evan] 1.2 units SUBCUT QAM 01/27/18 01/27/18 History lisinopril 20 mg PO DAILY 01/27/18 01/27/18 History omeprazole 20 mg PO BID 01/27/18 01/27/18 History pravastatin 10 mg PO DAILY 01/27/18 01/27/18 History Exam Vital signs: Vital Signs 01/28/18 08:00 01/28/18 11:05 01/28/18 12:00 Temperature 98.1 F Pulse Rate 77 69 82 Respiratory Rate 33 H 18 21 Blood Pressure 190/69 H 164/60 H Pulse Oximetry 96 01/28/18 12:30 01/28/18 13:00 01/28/18 15:13 Temperature Pulse Rate 96 H 78 Respiratory Rate 45 H 18 Blood Pressure 171/49 H 185/52 H Pulse Oximetry 01/28/18 16:00 01/28/18 17:00 01/28/18 17:03 Temperature Pulse Rate 94 H 94 H 94 H Respiratory Rate 25 H 22 30 H Blood Pressure 187/66 H Pulse Oximetry 01/28/18 18:00 01/28/18 19:37 01/28/18 20:00 Temperature 97.6 F Pulse Rate 96 H 78 100 H Respiratory Rate 29 H 16 21 Blood Pressure Pulse Oximetry 94 L 99 01/29/18 00:00 01/29/18 04:00 Temperature 99 F 98.5 F Pulse Rate 91 H 94 H Respiratory Rate 27 H 17 Blood Pressure 133/48 L 179/80 H Pulse Oximetry 94 L 94 L Intake & Output 01/28/18 01/29/18 01/29/18 18:59 06:59 18:59 Intake Total 120 / 120 540 / 540 Output Total 400 / 400 1500 / 1500 Balance -280 / -280 -960 / -960 Weight 102.1 kg Intake: IV 300 / 300 Magnesium Sulfate Inj 2 GM In 100 / 100 NS Inj 96 ML @ 50 mls/hr IV.SIG ONCE ONE Rx#:[id number] KCl 10 mEq Premix Inj 10 meq In 200 / 200 100 ml @ 100 mls/hr IV.SIG Q1H MARIAM Rx#:[id number] Oral 120 / 120 240 / 240 Output: Urine 400 / 400 1500 / 1500 Other: # Voids 3 # Bowel Movements 0 0 Results 01/29/18 04:10 01/29/18 04:10 Cardiac Enzymes 10/20/18 10/20/18 Range/Units 11:05 11:05 AST 54 H (15-37) U/L Troponin I Less than 0.02 L (0.02-0.05) ng/mL B-Natriuretic Peptide 648 H (0-100) pg/mL Coagulation 01/27/18 Range/Units 11:05 B-Natriuretic Peptide 648 H (0-100) pg/mL CBC 01/27/18 01/28/18 01/29/18 Range/Units 11:05 05:50 04:10 WBC 6.8 7.7 9.1 (4.0-11.0) th/mm3 RBC 3.91 L 3.66 L 3.74 L (4.00-5.30) mil/mm3 Hgb 11.4 L 10.1 L 10.8 L (11.6-15.3) gm/dL Hct 34.3 L 32.5 L 33.1 L (35.0-46.0) % Plt Count 162 174 183 (150-450) th/mm3 Neut # (Auto) 5.0 5.9 6.7 (1.8-7.7) th/mm3 Lymph # (Auto) 1.0 1.1 1.1 (1.0-4.8) th/mm3 [place] # (Auto) 0.5 0.6 0.9 (0.0-0.9) th/mm3 Eos # (Auto) 0.2 0.1 0.1 (0.0-0.4) th/mm3 Baso # (Auto) 0.1 0.0 0.3 H (0.0-0.2) th/mm3 Comprehensive Metabolic Panel 01/27/18 01/28/18 01/28/18 Range/Units 11:05 05:50 22:04 Sodium 141 143 139 (136-145) meq/L Potassium 3.6 3.4 L 3.3 L (3.5-5.1) meq/L Chloride 109 H 108 H 105 (98-107) meq/L Carbon Dioxide 21.9 25.4 24.6 (21.0-32.0) meq/L BUN 18 19 H 20 H (7-18) mg/dL Creatinine 1.60 H 1.40 H 1.80 H (0.50-1.00) mg/dL Calcium 7.7 L 7.8 L 8.2 L (8.5-10.1) mg/dL AST 54 H (15-37) U/L ALT 55 H (10-53) U/L Alkaline Phosphatase 125 H (45-117) U/L Total Protein 7.2 (6.4-8.2) g/dL Albumin 3.0 L (3.4-5.0) g/dL 01/29/18 Range/Units 04:10 Sodium 140 (136-145) meq/L Potassium 3.8 (3.5-5.1) meq/L Chloride 104 (98-107) meq/L Carbon Dioxide 25.4 (21.0-32.0) meq/L BUN 20 H (7-18) mg/dL Creatinine 1.50 H (0.50-1.00) mg/dL Calcium 8.0 L (8.5-10.1) mg/dL AST (15-37) U/L ALT (10-53) U/L Alkaline Phosphatase (45-117) U/L Total Protein (6.4-8.2) g/dL Albumin (3.4-5.0) g/dL Intake and Output 01/28/18 01/29/18 01/29/18 22:59 06:59 14:59 Intake Total 120 / 120 540 / 540 Output Total 400 / 400 1500 / 1500 Balance -280 / -280 -960 / -960 Intake: IV 300 / 300 Magnesium Sulfate Inj 2 GM In 100 / 100 NS Inj 96 ML @ 50 mls/hr IV.SIG ONCE ONE Rx#:[id number] KCl 10 mEq Premix Inj 10 meq In 200 / 200 100 ml @ 100 mls/hr IV.SIG Q1H MARIAM Rx#:[id number] Oral 120 / 120 240 / 240 Output: Urine 400 / 400 1500 / 1500 Other: # Voids 3 # Bowel Movements 0 0 Weight 102.1 kg - Imaging and Cardiology Imaging: Impressions Pulmonary Perfusion Imaging 01/27/18 00:00 CONCLUSION: 1. No focal perfusion defects to suggest pulmonary embolus. Low probability for pulmonary embolus. Chest X-Ray 01/27/18 11:44 CONCLUSION: 1. Mild diffuse increased interstitial markings bilaterally consistent with minimal pulmonary vascular congestion or viral pneumonitis. Clinical correlation is recommended. 2. Cardiomegaly. Assessment and Plan - Plan New Onset paroxysmal afib ([id number] Score 5 age, female, Dm2, HTN), currently in NSR -change to Diltiazem 240mg po ER -Eliquis 5 mg po BID Acute on Chronic Diastolic HF -diuresed with with IV Lasix, d/c home on Lasix 40mg po qday CKD -cr improved Dm2- continue home hypoglycemic agents. Ok to d/c home today
--- NOTE | 2018-01-29 07:43 | P.DS ---
Date of admission: 01/27/18 13:18 Primary care physician: Hansel Lr MD Anticipated date of discharge: 01/29/18 Brief History from admission: Is a 77-year-old female patient with a known medical history of diabetes who presented to the ED with complaints of shortness of breath. Patient states that she was driving around with her friend this morning looking at houses when she developed a sudden shortness of breath, feeling of warmth and feeling like she was going to pass out. Patient states that she has over the course of the week been feeling more fatigued, developed shortness of breath especially with exertion and lying flat, as well as associated nausea. She denies any recent illness including fever, chills, chest pain, abdominal pain, vomiting, diarrhea or dysuria. Her PCP is Dr. Haque, last seen a month ago, at that time her PCP did start her on some new diabetic medications. She denies any prior history of CHF, although does take Lasix for fluid retention. Patient does admit to increased swelling in her bilateral extremities. Denies any history of atrial fibrillation. Does not take any anticoagulants. Denies any recent echocardiogram. Upon exam patient is lying in bed comfortably with no dyspnea, cardiac telemetry showing heart rate in the 130s-140s, and labile. Blood pressure is stable. Will start on Cardizem IV drip and transfer to the ICU for closer monitoring. Cardiology has been consulted. Diuretics ordered. D-dimer elevated, VQ scan ordered. 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 fib RVR. Patient update on day of discharge: Follow up CHF and new onset a fib. Patient seen and examined, sitting up in chair comfortably. Denies any chest pain or shortness of breath. Cards in to see patient this morning. BP stable this am, in NSR. On RA comfortably. DS: Diagnosis - Discharge Diagnosis (1) New onset atrial fibrillation Status: Acute (2) Atrial fibrillation with rapid ventricular response Status: Acute (3) Elevated brain natriuretic peptide (BNP) level Status: Acute (4) Dyspnea Status: Acute DS: Medications - Discharge Medications Prescriptions: apixaban [Eliquis] 5 mg PO BID 30 Days #60 tab diltiazem HCl 240 mg PO DAILY 30 Days #30 cap furosemide 40 mg PO DAILY 30 Days #30 tab levothyroxine [Synthroid] 75 mcg PO DAILY@0600 30 Days tab DS: Summary Hospital Course: This is a 77-year-old female patient who presented with a heart rate in the 130s with associated shortness of breath and BNP 648. Patient presented in new onset atrial fibrillation currently in RVR. EKG showing controlled heart rate with A. fib RVR. Now in SR. She also had an elevated d-dimer suspect secondary to above ruled out pulmonary embolism with VQ scan, was negative. Cardizem drip ordered, with bolus. this was weaned off and switched to oral. Transferred to ICU for closer monitoring. Chest x-ray showing mildly diffuse increased interstitial markings bilaterally consistent with minimal pulmonary vascular congestion. Was placed on IV Lasix, diuresed well. Echo ordered showing compensated EF, diastolic HF, mild pulm hypertension with PA pressure 40. Consult placed to cardiology, input recommendations appreciated. Patient does not follow with a frontend engineer. Started on Eliquis 5 mg BID PO as well increased Cardizem 240 mg ER PO daily. Patient has a h/o CKD, creatinine 1.6/ GFR 31 on presentation and is improving. Upon review of records, patient does not seem to have a history of chronic kidney disease. History of fluid retention on Lasix from PCP. Patient has type 2 diabetes mellitus, chronic and this was controlled while hospitalized. - Time Spent with Patient Total time spent providing and/or coordinating discharge services: Greater than 30 minutes - Quality: VTE Deep Vein Thrombosis/Pulmonary Embolism Present on Admission: No Exam Vital signs: Vital Signs 01/28/18 08:00 01/28/18 11:05 01/28/18 12:00 Temperature 98.1 F Pulse Rate 77 69 82 Respiratory Rate 33 H 18 21 Blood Pressure 190/69 H 164/60 H Pulse Oximetry 96 01/28/18 12:30 01/28/18 13:00 01/28/18 15:13 Temperature Pulse Rate 96 H 78 Respiratory Rate 45 H 18 Blood Pressure 171/49 H 185/52 H Pulse Oximetry 01/28/18 16:00 01/28/18 17:00 01/28/18 17:03 Temperature Pulse Rate 94 H 94 H 94 H Respiratory Rate 25 H 22 30 H Blood Pressure 187/66 H Pulse Oximetry 01/28/18 18:00 01/28/18 19:37 01/28/18 20:00 Temperature 97.6 F Pulse Rate 96 H 78 100 H Respiratory Rate 29 H 16 21 Blood Pressure Pulse Oximetry 94 L 99 01/29/18 00:00 01/29/18 04:00 Temperature 99 F 98.5 F Pulse Rate 91 H 94 H Respiratory Rate 27 H 17 Blood Pressure 133/48 L 179/80 H Pulse Oximetry 94 L 94 L Intake & Output 01/28/18 01/29/18 01/29/18 18:59 06:59 18:59 Intake Total 120 / 120 540 / 540 Output Total 400 / 400 1500 / 1500 Balance -280 / -280 -960 / -960 Weight 102.1 kg Intake: IV 300 / 300 Magnesium Sulfate Inj 2 GM In 100 / 100 NS Inj 96 ML @ 50 mls/hr IV.SIG ONCE ONE Rx#:[id number] KCl 10 mEq Premix Inj 10 meq In 200 / 200 100 ml @ 100 mls/hr IV.SIG Q1H GENE Rx#:[id number] Oral 120 / 120 240 / 240 Output: Urine 400 / 400 1500 / 1500 Other: # Voids 3 # Bowel Movements 0 0 Narrative: GENERAL: Well-developed, well-nourished obese female patient in [facility]. On room air. SKIN: Warm and dry. No rash. HEAD: Normocephalic. Atraumatic. EYES: Pupils equal and round. No scleral icterus. No injection or drainage. ENT: No nasal bleeding or discharge. Mucous membranes pink and moist. NECK: Supple. Trachea midline. CARDIOVASCULAR: SR, regular rate, S1 and S2 present. No murmur appreciated. RESPIRATORY: No accessory muscle use. Clear to auscultation. Breath sounds equal bilaterally. GASTROINTESTINAL: Abdomen soft, non-tender, nondistended. Normoactive bowel sounds x4. MUSCULOSKELETAL: No obvious deformities. Extremities without clubbing, cyanosis. Bilateral lower extremity swelling 2+ edema. NEUROLOGICAL: Awake and alert. No obvious cranial nerve deficits. Motor grossly within normal limits. 5/5 muscle strength in bilateral upper and lower extremities. Normal speech. PSYCHIATRIC: Appropriate mood and affect; insight and judgment normal. Results Procedures completed during hospitalization: See above. Labs on day of discharge: Labs from last 24 hours 01/29/18 01/29/18 01/29/18 04:10 04:10 04:10 CBC w Diff Auto diff final WBC 9.1 RBC 3.74 L Hgb 10.8 L Hct 33.1 L MCV 88.5 MCH 28.8 MCHC 32.5 RDW 15.0 Plt Count 183 MPV 8.6 Neut % (Auto) 74.9 H Lymph % (Auto) 11.6 [place] % (Auto) 9.7 H Eos % (Auto) 0.9 Baso % (Auto) 2.9 H Neut # (Auto) 6.7 Lymph # (Auto) 1.1 [place] # (Auto) 0.9 Eos # (Auto) 0.1 Baso # (Auto) 0.3 H WBC Differential . Differential Comment . Sodium 140 Potassium 3.8 Chloride 104 Carbon Dioxide 25.4 Anion Gap 11 BUN 20 H Creatinine 1.50 H Estimated GFR 34 L POC Glucose Random Glucose 149 H Calcium 8.0 L Magnesium 1.7 01/28/18 01/28/18 01/28/18 22:04 20:24 17:07 CBC w Diff WBC RBC Hgb Hct MCV MCH MCHC RDW Plt Count MPV Neut % (Auto) Lymph % (Auto) [place] % (Auto) Eos % (Auto) Baso % (Auto) Neut # (Auto) Lymph # (Auto) [place] # (Auto) Eos # (Auto) Baso # (Auto) WBC Differential Differential Comment Sodium 139 Potassium 3.3 L Chloride 105 Carbon Dioxide 24.6 Anion Gap 9 BUN 20 H Creatinine 1.80 H Estimated GFR 27 L POC Glucose 166 H 171 H Random Glucose 164 H Calcium 8.2 L Magnesium 1.3 L 01/28/18 01/28/18 12:54 07:56 CBC w Diff WBC RBC Hgb Hct MCV MCH MCHC RDW Plt Count MPV Neut % (Auto) Lymph % (Auto) [place] % (Auto) Eos % (Auto) Baso % (Auto) Neut # (Auto) Lymph # (Auto) [place] # (Auto) Eos # (Auto) Baso # (Auto) WBC Differential Differential Comment Sodium Potassium Chloride Carbon Dioxide Anion Gap BUN Creatinine Estimated GFR POC Glucose 165 H 131 H Random Glucose Calcium Magnesium - Impressions ITS Impressions Pulmonary Perfusion Imaging 01/27/18 00:00 CONCLUSION: 1. No focal perfusion defects to suggest pulmonary embolus. Low probability for pulmonary embolus. Chest X-Ray 01/27/18 11:44 CONCLUSION: 1. Mild diffuse increased interstitial markings bilaterally consistent with minimal pulmonary vascular congestion or viral pneumonitis. Clinical correlation is recommended. 2. Cardiomegaly. Discharge Plan - Discharge Disposition Patient Disposition: 01 Discharge Home - Discharge Condition Condition: Stable - Discharge Order Discharge Orders: Discharge Order (Routine); Ordered 01/29/18 Ordered By: Kenisha Freeman - Discharge Details Anticipated Discharge Date: 01/29/18 - Physicians Team Primary Care Provider: Hansel Lr Attending Provider: Kervin Crook Other Providers: Gail Coker MD
[2018-01-29 08:36] VITALS: BP 181/52; PULSE 82
[2018-01-29 08:44] VITALS: RESP 17; TEMP 97.3; O2SAT 97
[2018-01-29] MEDS ORDERED: dilTIAZem CD 240 MG Capsule PO SCH (09:00)
[2018-01-29] MEDS ORDERED: Furosemide 40 MG Tablet PO SCH (09:00)
[2018-01-29] MEDS: Lisinopril 20 MG Tablet PO SCH (09:32)
[2018-01-29] MEDS: Insulin NovoLOG Aspart Correctional Sugar Inj SQ SCH (09:33)
--- NOTE | 2018-01-29 16:55 | ECG ---
Date Performed: 01/29/2018 Time Performed: 09:17:24 PTAGE: 77 years EKG: Sinus rhythm POSSIBLE LEFT ATRIAL ENLARGEMENT NONSPECIFIC ST & T-WAVE ABNORMALITY BORDERLINE ECG PREVIOUS TRACING : 01/27/2018 11.07 Compared to previous tracing, the trial fibrillation has re solved. there has been improvement in the ST segment changes but they do persist. The corrected QT in terval on the present tracing is now prolonged and drug effect, elctrolyte imbalance and myocardial d isease should be excluded clinically DOCTOR: Mya Suggs Interpretating Date/Time 01/29/2018 16:55:04
== END 2018-01-29 10:20 | disposition home or self-care (01) ==
LOC: PHED 10:39 → PHEDA 13:18 → PHICU 14:53
PROVIDERS: ADMIT Internal Medicine; ATTEND Internal Medicine

== ENCOUNTER 2018-02-03 16:42 | Inpatient (IN) ==
[2018-02-03 17:22] LABS: Baso # (Auto) 0.2 th/mm3 (0.0-0.2); Baso % (Auto) 2.5 % (0.0-2.0); Eos # (Auto) 0.1 th/mm3 (0.0-0.4); Eos % (Auto) 1.7 % (0.0-4.0); Hematocrit 36.1 % (35.0-46.0); Lymph # (Auto) 0.9 th/mm3 (1.0-4.8); Mean Corpuscular HGB Conc 33.2 % (32.0-36.0); Mean Corpuscular Hemoglobin 29.5 pg (27.0-34.0); Mean Platelet Volume 8.5 fL (7.0-11.0); Mono # (Auto) 0.5 th/mm3 (0.0-0.9); Mono % (Auto) 6.1 % (0.0-8.0); Neut # (Auto) 6.9 th/mm3 (1.8-7.7); Neut % (Auto) 78.7 % (16.0-70.0); Platelet Count 213 th/mm3 (150-450); Red Blood Count 4.06 mil/mm3 (4.00-5.30); Red Cell Distribution Width 15.4 % (11.6-17.2); White Blood Count 8.6 th/mm3 (4.0-11.0)
--- NOTE | 2018-02-03 17:22 | XR ---
EXAM DATE: 02/03/2018 5:14 PM EDT AGE/SEX: 77 years / Female INDICATIONS: Chest pain. CLINICAL DATA: This is the patient's initial encounter. Patient reports that signs and symptoms have been present for 1 day and indicates a pain score of 5/10. MEDICAL/SURGICAL HISTORY: Diabetes mellitus type II. None. COMPARISON: [facility], CHEST 1V SINGLE AP, 01/27/2018. . FINDINGS: A single AP view of the chest demonstrates the lungs to be symmetrically aerated without evidence of mass, infiltrate or effusion. The cardiomediastinal contours are mildly prominent. Atherosclerosis a t the aortic arch. Osseous structures are intact. CONCLUSION: No acute findings. Mild cardiomegaly. Electronically signed by: Ezequiel Be MD 02/03/2018 5:21 PM EDT
--- NOTE | 2018-02-03 17:29 | ED ---
HPI General Chief Complaint: Shortness of Breath/Dyspnea Stated Complaint: Raised HR Time Seen by Provider: 02/03/18 16:46 Source: patient and old records reviewed Mode of arrival: ambulatory Limitations: no limitations History of Present Illness The patient is a 77 year old female. The patient arrives due to shortness of breath and palpitations. She was admitted here just a couple weeks ago after arriving to the ED with a similar complaint and workup revealed A. fib with RVR and a BNP of about 650 with pulmonary edema. Echo at that time revealed concentric hypertrophy of the left ventricle with an EF of 60-65%. Patient reports compliance with Lasix at home. She reports compliance with dietary guidelines. She states she may have overexerted herself slightly today. The patient saw the line to vote and chose not to because it was so long. She then turned around and went home and stop the store and upon entering felt hot and short of breath as though she might lose consciousness. Patient did not lose consciousness however went home and laid in bed and has since felt palpitations. Patient reports ongoing compliance with Eliquis and diltiazem. She describes a vague left chest pressure like discomfort. MD Complaint: Reports shortness of breath and chest pain Onset (ago): hour(s) Severity: mild Consistency/Duration: constant Relieving factors: rest Exacerbating factors: exertion Related Data Home Medications Medication Instructions Recorded Confirmed L-Thyroxine 50 mcg PO DAILY 01/27/18 02/03/18 diclofenac sodium 75 mg PO BID 01/27/18 02/03/18 diclofenac sodium [Voltaren] 2 g TOPICAL QID 01/27/18 02/03/18 glimepiride 2 mg PO QAM 01/27/18 02/03/18 ipratropium-albuterol [Combivent 1 puff INHALATION QID 01/27/18 02/03/18 Respimat] liraglutide [Victoza 3-Evan] 1.2 units SUBCUT QAM 01/27/18 02/03/18 lisinopril 20 mg PO DAILY 01/27/18 02/03/18 omeprazole 20 mg PO BID 01/27/18 02/03/18 pravastatin 10 mg PO DAILY 01/27/18 02/03/18 furosemide 40 mg PO BID 02/03/18 02/03/18 Previous Rx's Medication Instructions Recorded apixaban [Eliquis] 5 mg PO BID 30 Days #60 tab 01/29/18 diltiazem HCl 240 mg PO DAILY 30 Days #30 cap 01/29/18 Allergies Allergy/AdvReac Type Severity Reaction Status Date / Time latex Allergy Severe rash Verified 01/27/18 10:47 levofloxacin Allergy Severe rash and Verified 01/27/18 10:47 swelling Review of Systems ROS: all other systems reviewed are negative Constitutional Denies fever(s) Respiratory Denies cough PMFSH Medical History Medical History History of atrial fibrillation (Acute) Hx of diabetes mellitus (Acute) GERD (gastroesophageal reflux disease) (Acute) HTN (hypertension) (Acute) High cholesterol (Acute) Hypothyroidism (Acute) Family History Family History Other Family history in first degree relatives is unremarkable Social History Social History Substance History: No History of Abuse Second Hand Smoke Exposure: No Smoking Status: Former smoker Tobacco Type: Cigarettes How Often Do You Have a Drink Containing Alcohol: Monthly or less Immunization History Tetanus Immunization: Unsure Exam Narrative Exam Narrative: GENERAL: 77-year-old female pleasant well-nourished well- developed, speaking in full sentences, mildly anxious SKIN: Focused skin assessment warm/dry. HEAD: Atraumatic. Normocephalic. EYES: Pupils equal and round. No scleral icterus. No injection or drainage. ENT: No nasal bleeding or discharge. Mucous membranes pink and moist. NECK: Trachea midline. No JVD. CARDIOVASCULAR: Regular rate and rhythm. No murmur appreciated. RESPIRATORY: No accessory muscle use. Clear to auscultation. Breath sounds equal bilaterally. GASTROINTESTINAL: Abdomen soft, non-tender, nondistended. Hepatic and splenic margins not palpable. MUSCULOSKELETAL: No obvious deformities. No clubbing. No cyanosis. Trace bilateral pedal edema. NEUROLOGICAL: Awake and alert. No obvious cranial nerve deficits. Motor grossly within normal limits. Normal speech. PSYCHIATRIC: Appropriate mood and affect; insight and judgment normal. Course Initial Documented Vital Signs Temperature 97.5 F L 02/03/18 16:54 Pulse Rate 92 H 02/03/18 16:54 Respiratory Rate 20 02/03/18 16:54 Blood Pressure 190/60 H 02/03/18 16:54 Pulse Oximetry 97 02/03/18 16:54 Last Documented Vital Signs Temperature 97.6 F 02/03/18 17:11 Pulse Rate 77 02/03/18 19:24 Respiratory Rate 18 02/03/18 19:24 Blood Pressure 185/79 H 02/03/18 19:24 Pulse Oximetry 97 02/03/18 19:24 Critical Care Time Critical Care Time: Yes Total Critical Care Time: 35 Attestation: Aggregate critical care time was 35 minutes. Time to perform other separately billable procedures was not included in the critical care time. My time did not include minutes spent treating any other patients simultaneously or on activities that did not directly contribute to the patient's treatment. The services I provided to this patient were to treat and/or prevent clinically significant deterioration that could result in: Cardiopulmonary arrest, pneumothorax I provided critical care services requiring my management, as noted below: Chart data review, documentation time, medication orders and management, vital sign assessments/reviewing monitor data, ordering and reviewing lab tests, ordering and interpreting/reviewing x-rays and diagnostic studies, care of the patient and discussion of the patient with the admitting physicians. Medical Decision Making MDM Narrative Medical decision making narrative: Patient is chest pain-free here in the ER. We do see an elevation in troponin which is nonspecific however it is measurable today and it was not a week ago and the renal indices were essentially the same then. BNP is lower today as well at about 150 down from 650. Patient also had chest pain in the ER briefly which resolved within about an hour or so of arrival. Ischemia is indeterminate. Discussed with cardiology Dr. Miranda who advised against a heparin. Patient is on Eliquis. Case discussed with Dr. Fox for the hospitalist service. Patient will go to the main site. Aspirin ordered here as well as Nitropaste. Medical Screen Exam Complete: Yes Emergency Medical Condition: Yes Differential Diagnosis Differential Diagnosis: Anemia, CHF, pneumonia, anxiety, A. fib Medical Records Medical records reviewed: Yes I reviewed the patient's medical records. Lab Data Lab results reviewed: Yes I reviewed the patient's lab results. Lab results narrative: Troponin is 0.13 Troponin from 7 days ago was not detectable Renal sufficiency is stable compared to 7 days ago The BMP is 144; last week it was in the 600s. Result diagrams: 02/03/18 17:09 02/03/18 17:09 Lab Results 10/27/18 10/27/18 10/27/18 Range/Units 17:09 17:09 17:09 CBC w Diff Slide review pending WBC 8.6 (4.0-11.0) th/mm3 RBC 4.06 (4.00-5.30) mil/mm3 Hgb 12.0 (11.6-15.3) gm/dL Hct 36.1 (35.0-46.0) % MCV 89.0 (80.0-100.0) fL MCH 29.5 (27.0-34.0) pg MCHC 33.2 (32.0-36.0) % RDW 15.4 (11.6-17.2) % Plt Count 213 (150-450) th/mm3 MPV 8.5 (7.0-11.0) fL Neut % (Auto) 78.7 H (16.0-70.0) % Lymph % (Auto) 11.0 (9.0-44.0) % Ector % (Auto) 6.1 (0.0-8.0) % Eos % (Auto) 1.7 (0.0-4.0) % Baso % (Auto) 2.5 H (0.0-2.0) % Neut # (Auto) 6.9 (1.8-7.7) th/mm3 Lymph # (Auto) 0.9 L (1.0-4.8) th/mm3 Ector # (Auto) 0.5 (0.0-0.9) th/mm3 Eos # (Auto) 0.1 (0.0-0.4) th/mm3 Baso # (Auto) 0.2 (0.0-0.2) th/mm3 WBC Differential . Diff Scan Auto diff confirmed Differential Comment . Hypersegmented Neuts 1+ H (None) Sodium 138 (136-145) meq/L Potassium 4.1 (3.5-5.1) meq/L Chloride 105 (98-107) meq/L Carbon Dioxide 24.4 (21.0-32.0) meq/L Anion Gap 9 (5-15) meq/L BUN 22 H (7-18) mg/dL Creatinine 1.90 H (0.50-1.00) mg/dL Estimated GFR 26 L (>89) mL/min Random Glucose 175 H (74-106) mg/dL Calcium 8.4 L (8.5-10.1) mg/dL Magnesium 1.5 (1.5-2.5) mg/dL Total Bilirubin 0.4 (0.2-1.0) mg/dL AST 59 H (15-37) U/L ALT 52 (10-53) U/L Alkaline Phosphatase 132 H (45-117) U/L Total Creatine Kinase 124 (26-192) U/L CK-MB (CK-2) 2.0 (0.5-3.6) ng/mL Troponin I 0.14 H (0.02-0.05) ng/mL B-Natriuretic Peptide 144 H (0-100) pg/mL Total Protein 7.6 (6.4-8.2) g/dL Albumin 3.1 L (3.4-5.0) g/dL Ur Collection Type Urine Color (Yellw/Straw) Urine Clarity (Clear) Urine pH (5.0-8.5) Ur Specific [place] (1.002-1.035) Urine Protein (Neg-Trace) mg/dL Urine Glucose (UA) (Negative) mg/dL Urine Ketones (Negative) mg/dL Urine Occult Blood (Negative) Urine Nitrate (Negative) Urine Bilirubin (Negative) Urine Urobilinogen (Less than 2) mg/dL Ur Leukocyte Esterase (Negative) Ur Squamous Epith Cells (0-5) /hpf Amorphous Sediment (None) /hpf Micro UA Comment Ur Microscopic Review Urine Culture Comments Urine Collection Time hours 02/03/18 Range/Units 17:33 CBC w Diff WBC (4.0-11.0) th/mm3 RBC (4.00-5.30) mil/mm3 Hgb (11.6-15.3) gm/dL Hct (35.0-46.0) % MCV (80.0-100.0) fL MCH (27.0-34.0) pg MCHC (32.0-36.0) % RDW (11.6-17.2) % Plt Count (150-450) th/mm3 MPV (7.0-11.0) fL Neut % (Auto) (16.0-70.0) % Lymph % (Auto) (9.0-44.0) % Ector % (Auto) (0.0-8.0) % Eos % (Auto) (0.0-4.0) % Baso % (Auto) (0.0-2.0) % Neut # (Auto) (1.8-7.7) th/mm3 Lymph # (Auto) (1.0-4.8) th/mm3 Ector # (Auto) (0.0-0.9) th/mm3 Eos # (Auto) (0.0-0.4) th/mm3 Baso # (Auto) (0.0-0.2) th/mm3 WBC Differential Diff Scan Differential Comment Hypersegmented Neuts (None) Sodium (136-145) meq/L Potassium (3.5-5.1) meq/L Chloride (98-107) meq/L Carbon Dioxide (21.0-32.0) meq/L Anion Gap (5-15) meq/L BUN (7-18) mg/dL Creatinine (0.50-1.00) mg/dL Estimated GFR (>89) mL/min Random Glucose (74-106) mg/dL Calcium (8.5-10.1) mg/dL Magnesium (1.5-2.5) mg/dL Total Bilirubin (0.2-1.0) mg/dL AST (15-37) U/L ALT (10-53) U/L Alkaline Phosphatase (45-117) U/L Total Creatine Kinase (26-192) U/L CK-MB (CK-2) (0.5-3.6) ng/mL Troponin I (0.02-0.05) ng/mL B-Natriuretic Peptide (0-100) pg/mL Total Protein (6.4-8.2) g/dL Albumin (3.4-5.0) g/dL Ur Collection Type Clean catch Urine Color Straw (Yellw/Straw) Urine Clarity Clear (Clear) Urine pH 7.0 (5.0-8.5) Ur Specific [place] 1.015 (1.002-1.035) Urine Protein Negative (Neg-Trace) mg/dL Urine Glucose (UA) Negative (Negative) mg/dL Urine Ketones Negative (Negative) mg/dL Urine Occult Blood Negative (Negative) Urine Nitrate Negative (Negative) Urine Bilirubin Negative (Negative) Urine Urobilinogen 0.2 (Less than 2) mg/dL Ur Leukocyte Esterase Negative (Negative) Ur Squamous Epith Cells 6-10 H (0-5) /hpf Amorphous Sediment Few H (None) /hpf Micro UA Comment Culture not ind Ur Microscopic Review Microscopic reviewed Urine Culture Comments Culture not ind Urine Collection Time 1733 hours Imaging Data Attestation: I personally reviewed and interpreted this imaging study as follows : (No pneumonia) Radiologist's impression: Chest X-Ray 02/03/18 16:56 CONCLUSION: No acute findings. Mild cardiomegaly. ECG Data Attestation: I personally reviewed and interpreted this ECG as follows: (EKG shows sinus rhythm with a rate 83 ST depression in lateral precordial leads as well as 1 and aVL) Discharge Plan Discharge Disposition Patient Disposition: 30 Still Patient Physicians Team ED Provider: Danish Aguila Primary Care Provider: Hansel Lr Attending Provider: Vicente Fox Status ED Status: Admitted Patient
[2018-02-03 17:47] LABS: Chloride 105 meq/L (98-107); Potassium 4.1 meq/L (3.5-5.1); Sodium 138 meq/L (136-145)
[2018-02-03 17:50] LABS: Calcium 8.4 mg/dL (8.5-10.1)
[2018-02-03 17:51] LABS: Albumin 3.1 g/dL (3.4-5.0); Anion Gap 9 meq/L (5-15); Blood Urea Nitrogen 22 mg/dL (7-18); Carbon Dioxide 24.4 meq/L (21.0-32.0); Glucose,Random 175 mg/dL (74-106); Magnesium 1.5 mg/dL (1.5-2.5)
[2018-02-03 17:54] LABS: Alanine Aminotransferase 52 U/L (10-53); Aspartate Aminotransferase 59 U/L (15-37); Glomerular Filtration Rate 26 mL/min (>89)
[2018-02-03 17:56] LABS: Total Protein 7.6 g/dL (6.4-8.2)
[2018-02-03 17:57] LABS: Alkaline Phosphatase 132 U/L (45-117); Creatine Kinase 124 U/L (26-192)
[2018-02-03 17:59] LABS: Troponin I 0.14 ng/mL (0.02-0.05)
[2018-02-03 18:07] LABS: Bilirubin,Urine Negative (Negative); Clarity,Urine Clear (Clear); Glucose,Urine (UA) Negative (Negative); Leukocyte Esterase,Urine Negative (Negative); Nitrite,Urine Negative (Negative); Specific Gravity,Urine 1.015 (1.002-1.035); Urobilinogen,Urine 0.2 mg/dL (Less than 2)
[2018-02-03 18:09] LABS: Collection Time,Urine 1733 hours; Color,Urine Straw (Yellw/Straw)
[2018-02-03 18:12] LABS: Amorphous Sediment,Urine Few /hpf
[2018-02-03 18:21] LABS: Hypersegmented Neutrophils 1+
[2018-02-03] MEDS ORDERED: Aspirin 325 MG Tablet PO ONE (19:21)
[2018-02-03] MEDS ORDERED: Bisacodyl 10 MG Supp RECTAL PRN (19:27)
--- NOTE | 2018-02-03 22:48 | ECG ---
Date Performed: 02/03/2018 Time Performed: 22:09:36 PTAGE: 77 years EKG: Sinus rhythm ST DEVIATION AND MODERATE T-WAVE ABNORMALITY, CONSIDER LATERAL ISCHEMIA ABNORMAL ECG PREVIOUS TRACING : 02/03/2018 16.49 DOCTOR: Bhavin Jennings Interpretating Date/Time 02/03/2018 22:47:59
--- NOTE | 2018-02-03 23:11 | P.HPIM ---
History of Present Illness Primary Care Physician: Hansel Lr MD History of Present Illness: 77 y/o female with a recent diagnosis of chf and afib, ckd, hypothyroid, and diabetes presented to the ED with complaints of chest pressure. She states she was out shopping today and felt chest pressure in the center of her chest, constant, 7/10, with associated nausea, sob, heart palpitations and diaphoresis , no radiation to her jaw or extremities. She states the pain is better when she rests. She was recently discharged on 01/29 on Lasix and Cardizem and she states she has been compliant with medications. Inpatient Certification: I certify that the inpatient services were ordered in accordance with Medicare regulations governing the order. This includes certification that hospital inpatient services are reasonable and necessary and in the case of services not specified as inpatient-only under 42 CFR 419.22(n), that they are appropriately provided as inpatient services in accordance to with the 2-midnight benchmark under 43 CFR 412.3(e) Estimated Total Length of Stay (Days): 2 Plans for Post Hospital Care: Home Review of Systems All other systems reviewed negative except as stated in HPI PMFSH - History History Provided By: Patient - Medical History Medical History: Medical History (Last Reviewed 02/03/18 @ 23:56 by VASILE Richmond) History of atrial fibrillation Hx of diabetes mellitus GERD (gastroesophageal reflux disease) HTN (hypertension) High cholesterol Hypothyroidism - Surgical History Surgical History: Surgical History (Last Reviewed 02/03/18 @ 23:56 by VASILE Richmond) H/O bilateral mastectomy Hx of cholecystectomy - Family History Family History: Family History (Last Reviewed 02/03/18 @ 23:56 by VASILE Richmond) Other Family history in first degree relatives is unremarkable - Social History I have reviewed the patient's Social History: Yes - Tobacco History Second Hand Smoke Exposure: No Tobacco Use In Past 30 Days: No Smoking Status: Former smoker Tobacco Type: Cigarettes - Alcohol History How Often Do You Have a Drink Containing Alcohol: Never - Substance Use History Substance History: No History of Abuse - Immunization History Tetanus Immunization: >5 Years Hx Influenza Vaccine This Season: Yes Medications and Allergies Active Medications: Active Medications Al Hydroxide/Mg Hydroxide (Milk Of Magncirilo Liq) 30 ml PO Q12H PRN PRN Reason: Mild Constipation Aspirin (Aspirin Chew) 81 mg PO DAILY GENE Last Admin: 02/03/18 20:11 Dose: Not Given Bisacodyl (Dulcolax Supp) 10 mg RECTAL DAILY PRN PRN Reason: SEVERE CONSITIPATION Lactulose (Lactulose Liq) 30 ml PO DAILY PRN PRN Reason: SEVERE CONSITIPATION Nitroglycerin (Nitro-Bid 2% Oint) 1 inch TOPICAL Q6HR GENE Ondansetron HCl (Zofran Inj) 4 mg IV.PUSH Q6H PRN PRN Reason: NAUSEA Last Admin: 02/03/18 22:29 Dose: 4 mg Sennosides (Senokot) 17.2 mg PO Q12H PRN PRN Reason: Moderate Constipation Allergies Allergy/AdvReac Type Severity Reaction Status Date / Time latex Allergy Severe rash Verified 01/27/18 10:47 levofloxacin Allergy Severe rash and Verified 01/27/18 10:47 swelling Home Medications Medication Instructions Recorded Confirmed Type L-Thyroxine 50 mcg PO DAILY 01/27/18 02/03/18 History diclofenac sodium 75 mg PO BID 01/27/18 02/03/18 History diclofenac sodium [Voltaren] 2 g TOPICAL QID 01/27/18 02/03/18 History glimepiride 2 mg PO QAM 01/27/18 02/03/18 History ipratropium-albuterol [Combivent 1 puff INHALATION QID 01/27/18 02/03/18 History Respimat] liraglutide [Victoza 3-Evan] 1.2 units SUBCUT QAM 01/27/18 02/03/18 History lisinopril 20 mg PO DAILY 01/27/18 02/03/18 History omeprazole 20 mg PO BID 01/27/18 02/03/18 History pravastatin 10 mg PO DAILY 01/27/18 02/03/18 History furosemide 40 mg PO BID 02/03/18 02/03/18 History Exam Vital signs: Vital Signs 02/03/18 16:54 02/03/18 17:11 02/03/18 18:09 Temperature 97.5 F L 97.6 F Pulse Rate 92 H 75 69 Respiratory Rate 20 20 18 Blood Pressure 190/60 H 190/60 H 189/73 H Pulse Oximetry 97 97 96 02/03/18 19:14 02/03/18 19:24 02/03/18 21:03 Temperature Pulse Rate 69 77 72 Respiratory Rate 18 16 Blood Pressure 185/79 H 188/72 H Pulse Oximetry 98 97 98 Intake & Output 02/03/18 02/03/18 02/04/18 06:59 18:59 06:59 Output Total 400 / 400 350 / 350 Balance -400 / -400 -350 / -350 Weight 100 kg 99.3 kg Output: Urine 400 / 400 350 / 350 Other: # Voids 1 Weight On Admission 99.3 kg Narrative: GENERAL: This is a well-nourished, well-developed patient, in no apparent distress. CARDIOVASCULAR: Regular rate and rhythm without murmurs, gallops, or rubs. RESPIRATORY: Clear to auscultation. Breath sounds equal bilaterally. No wheezes , rales, or rhonchi. GASTROINTESTINAL: Abdomen soft, non-tender, nondistended. Normal active bowel sounds MUSCULOSKELETAL: Extremities without clubbing, cyanosis. Bilateral lower extremities +1 edema NEURO: Alert & Oriented x4 to person, place, time, situation. Moves all ext x4 Results - Labs CBC & Chem 7: 02/03/18 17:09 02/03/18 17:09 Labs: Short CBC 02/03/18 Range/Units 17:09 WBC 8.6 (4.0-11.0) th/mm3 Hgb 12.0 (11.6-15.3) gm/dL Hct 36.1 (35.0-46.0) % Plt Count 213 (150-450) th/mm3 BMP 02/03/18 17:09 Sodium 138 Potassium 4.1 Chloride 105 Carbon Dioxide 24.4 BUN 22 H Creatinine 1.90 H Calcium 8.4 L Cardiac Enzymes 02/03/18 Range/Units 17:09 Total Creatine Kinase 124 (26-192) U/L CK-MB (CK-2) 2.0 (0.5-3.6) ng/mL Troponin I 0.14 H (0.02-0.05) ng/mL Liver Function 02/03/18 Range/Units 17:09 Total Bilirubin 0.4 (0.2-1.0) mg/dL AST 59 H (15-37) U/L ALT 52 (10-53) U/L Alkaline Phosphatase 132 H (45-117) U/L Albumin 3.1 L (3.4-5.0) g/dL Urine 02/03/18 Range/Units 17:33 Urine Color Straw (Yellw/Straw) Urine Clarity Clear (Clear) Urine pH 7.0 (5.0-8.5) Ur Specific [place] 1.015 (1.002-1.035) Urine Protein Negative (Neg-Trace) mg/dL Urine Glucose (UA) Negative (Negative) mg/dL - Imaging Impressions Chest X-Ray 02/03/18 16:56 CONCLUSION: No acute findings. Mild cardiomegaly. Caprini VTE Risk Assessment Caprini VTE Risk Assessment: Moderate/High Risk (score >= 2) Caprini Risk Assessment Model: Point Value = 1 Point Value = 2 Point Value = 3 Point Value = 5 Age 41-60 Minor surgery BMI > 25 kg/m2 Swollen legs Varicose veins or History of unexplained or recurrent spontaneous Oral contraceptives or hormone replacement Sepsis (< 1 month) Serious lung disease, including pneumonia (< 1 month) Abnormal pulmonary function Acute myocardial infarction Congestive heart failure (< 1 month) History of inflammatory bowel disease Medical patient at bed rest Age 61-74 Arthroscopic surgery Major open surgery (> 45 min) Laparoscopic surgery (> 45 min) Malignancy Confined to bed (> 72 hours) Immobilizing plaster cast Central venous access Age >= 75 History of VTE Family history of VTE Factor V Leiden Prothrombin [id number] Lupus anticoagulant Anticardiolipin antibodies Elevated serum homocysteine Heparin-induced thrombocytopenia Other congenital or acquired thrombophilia Stroke (< 1 month) Elective arthroplasty Hip, pelvis, or leg fracture Acute spinal cord injury (< 1 month) Prophylaxis Regimen: Total Risk Factor Score Risk Level Prophylaxis Regimen 0-1 Low Early ambulation 2 Moderate Order ONE of the following: *Sequential Compression Device (SCD) *Heparin 5000 units SQ BID 3-4 Higher Order ONE of the following medications: *Heparin 5000 units SQ TID *Enoxaparin/Lovenox 40 mg SQ daily (WT < 150 kg, CrCl > 30 mL/min) *Enoxaparin/Lovenox 30 mg SQ daily (WT < 150 kg, CrCl > 10-29 mL/min) *Enoxaparin/Lovenox 30 mg SQ BID (WT < 150 kg, CrCl > 30 mL/min) AND/OR *Sequential Compression Device (SCD) 5 or more Highest Order ONE of the following medications: *Heparin 5000 units SQ TID (Preferred with Epidurals) *Enoxaparin/Lovenox 40 mg SQ daily (WT < 150 kg, CrCl > 30 mL/min) *Enoxaparin/Lovenox 30 mg SQ daily (WT < 150 kg, CrCl > 10-29 mL/min) *Enoxaparin/Lovenox 30 mg SQ BID (WT < 150 kg, CrCl > 30 mL/min) AND *Sequential Compression Device (SCD) Assessment and Plan - Plan 77 y/o female with a recent diagnosis of chf and afib, ckd, hypothyroid, and diabetes presented to the ED with complaints of chest pressure. Chest pain/ NSTEMI Troponin .14, ekg reveled and shows a t wave abnormality and possible left atrial enlargement -Serial troponin and ekg -Heparin drip -Consult to cardiology -NPO Afib, chronic, [id number] Score 5 age, female, Dm2, HTN) -Resume home medications -monitor telemetry Hypertension, chronic -Resume home medications -Clonidine PRN Chronic Diastolic HF -Cont home Lasix CKD, chronic Creatine around baseline -Cont to monitor kidney function DM, chronic -ACCU checks with SSI -Hold home medications for now DVT prophylaxis: Heparin Discussed Condition With: Patient and RN H&P: Quality - VTE Deep Vein Thrombosis/Pulmonary Embolism Present on Admission: No
--- NOTE | 2018-02-03 23:13 | ECG ---
Date Performed: 02/03/2018 Time Performed: 16:49:27 PTAGE: 77 years EKG: Sinus rhythm POSSIBLE LEFT ATRIAL ENLARGEMENT ST DEVIATION AND MODERATE T-WAVE ABNORMALITY, CONSIDER LATERAL ISCH EMIA ABNORMAL ECG PREVIOUS TRACING : 01/29/2018 09.17 Compared to previous tracing, Anterior ST-depressions have resolved DOCTOR: Bhavin Jennings Interpretating Date/Time 02/03/2018 23:13:15
[2018-02-03] MEDS ORDERED: Dextrose 50% in Water 50 ML Vial IV.PUSH PRN (23:24)
[2018-02-03 23:36] LABS: Troponin I 0.43 ng/mL (0.02-0.05)
[2018-02-03] MEDS ORDERED: Heparin 10,000 UNITS/10 ML Vial (for IV use) IV.PUSH STA (23:47)
[2018-02-04] MEDS: Furosemide 40 MG Tablet PO SCH ×3 (00:18→20:41)
[2018-02-04 00:32] LABS: Activated Partial Thrombo Time 29.3 sec (24.3-30.1); INR 1.2 Ratio; Prothrombin Time 11.7 sec (9.8-11.6)
[2018-02-04] MEDS: Heparin Drip 25,000 UNIT/250 ML BAG IV.CONT PRN ×2 (01:05→23:27)
[2018-02-04 04:16] LABS: Baso % (Auto) 0.3 % (0.0-2.0); Eos # (Auto) 0.1 th/mm3 (0.0-0.4); Eos % (Auto) 1.1 % (0.0-4.0); Hematocrit 32.3 % (35.0-46.0); Hemoglobin 10.7 gm/dL (11.6-15.3); Lymph % (Auto) 11.1 % (9.0-44.0); Mean Corpuscular HGB Conc 33.2 % (32.0-36.0); Mean Corpuscular Hemoglobin 29.9 pg (27.0-34.0); Mean Corpuscular Volume 90.1 fL (80.0-100.0); Mean Platelet Volume 8.5 fL (7.0-11.0); Mono # (Auto) 0.7 th/mm3 (0.0-0.9); Mono % (Auto) 7.7 % (0.0-8.0); Neut # (Auto) 7.4 th/mm3 (1.8-7.7); Neut % (Auto) 79.8 % (16.0-70.0); Platelet Count 200 th/mm3 (150-450); Red Blood Count 3.59 mil/mm3 (4.00-5.30); Red Cell Distribution Width 16.2 % (11.6-17.2); White Blood Count 9.3 th/mm3 (4.0-11.0)
[2018-02-04 04:37] LABS: Albumin 2.7 g/dL (3.4-5.0); Anion Gap 9 meq/L (5-15); Aspartate Aminotransferase 47 U/L (15-37); Blood Urea Nitrogen 23 mg/dL (7-18); Calcium 8.1 mg/dL (8.5-10.1); Carbon Dioxide 26.5 meq/L (21.0-32.0); Chloride 106 meq/L (98-107); Glomerular Filtration Rate 26 mL/min (>89); Glucose,Random 140 mg/dL (74-106); Potassium 3.8 meq/L (3.5-5.1); Sodium 141 meq/L (136-145)
[2018-02-04 04:43] LABS: Alanine Aminotransferase 48 U/L (10-53); Alkaline Phosphatase 121 U/L (45-117); Total Protein 6.9 g/dL (6.4-8.2)
[2018-02-04 04:48] LABS: Creatine Kinase 80 U/L (26-192)
[2018-02-04] MEDS: Levothyroxine 50 MCG Tablet PO SCH (05:29)
[2018-02-04] MEDS: Insulin NovoLOG Aspart Correctional Sugar Inj SQ SCH ×4 (08:34→20:41)
[2018-02-04] MEDS: Tiotropium Bromide 18 MCG/ACT Inhaler INH SCH (08:35)
[2018-02-04] MEDS: Pantoprazole Sodium 20 MG DR Tablet PO SCH ×2 (08:35→20:41)
[2018-02-04] MEDS: Lisinopril 20 MG Tablet PO SCH (08:35)
[2018-02-04] MEDS: dilTIAZem CD 240 MG Capsule PO SCH (08:35)
[2018-02-04] MEDS ORDERED: Non-Formulary Drug (Ipratropium-Albuterol [Combivent Respimat] 1 PUFF) INHALATION SCH (09:00)
[2018-02-04 10:28] LABS: Chol/HDL Ratio 2.54 Ratio; HDL Cholesterol 43.6 mg/dL (40.0-60.0)
[2018-02-04] MEDS: Sod Chloride 0.9% Inj 1,000 ML IV.SIG SCH (11:23)
--- NOTE | 2018-02-04 12:14 | MB ---
cc: Colleen Miranda MD DATE: 02/04/2018 REASON FOR CONSULTATION: Chest pressure. HISTORY OF PRESENT ILLNESS: Ms. Collier is a 77-year-old female who was seen by my partner last week for new onset atrial fibrillation. She reports she had been doing well until yesterday when she went to early voting and became weak and diaphoretic in line. She had been, in fact, having intermittent episodes of chest pressure off and on all day. This subsequently precipitated her emergency room visit. She is currently pain free. The episodes did not really appear to have any precipitating or relieving factors. She describes it as chest tightness. OUTPATIENT MEDICATIONS: Include: 1. Diltiazem. 2. Eliquis. 3. Lasix. 4. Pravastatin. 5. Lisinopril. 6. Victoza. 7. Albuterol. 8. Glyburide. 9. Voltaren. PAST MEDICAL HISTORY: Significant for hypertension, hyperlipidemia, diabetes, atrial fibrillation, GERD and hypothyroidism. FAMILY HISTORY: Noncontributory. REVIEW OF SYSTEMS: Except as mentioned in the HPI, all 12 systems are negative. ALLERGIES: LATEX AND LEVOFLOXACIN. PHYSICAL EXAMINATION: VITAL SIGNS: 97.6, 66, 16, 161/70. GENERAL: She is an obese female who is in no apparent distress. NECK: Free from JVD. LUNGS: Bilaterally clear to auscultation. CARDIOVASCULAR: She has a normal S1 and S2. I do not appreciate any murmurs, rubs or gallops. ABDOMEN: Soft. EXTREMITIES: Free from edema. LABORATORY DATA: Significant for a hemoglobin of 10.7, creatinine of 1.86, serial troponins of 0.14/0.43/0.40. EKG shows sinus rhythm with inferolateral T-wave inversions. IMPRESSION: 1. Non-ST elevation myocardial infarction. The patient does have chest tightness, electrocardiogram changes and an elevated troponin, all consistent with potential ischemia. She is a relatively poor revascularization candidate with her anemia and renal insufficiency. At this point, we will continue the heparin and stop the Eliquis. I will start aspirin as well as this is concerning for an ischemic etiology. She will be evaluated by Dr. Coker in the morning for further consideration of a cardiac catheterization. 2. Atrial fibrillation. The patient is in fact in sinus rhythm today. 3. Renal insufficiency. I will start intravenous hydration in anticipation of a potential catheterization. MD XIN Lafleur/teodora , 09:30 AM , 09:38 AM
--- NOTE | 2018-02-04 13:49 | P.PN ---
Subjective Interval history: Nursing denies any deterioration since last night. Patient herself denies having any chest pain this morning. Physical Exam Vital signs: Vital Signs 02/03/18 16:54 02/03/18 17:11 02/03/18 18:09 Temperature 97.5 F L 97.6 F Pulse Rate 92 H 75 69 Respiratory Rate 20 20 18 Blood Pressure 190/60 H 190/60 H 189/73 H Pulse Oximetry 97 97 96 02/03/18 19:14 02/03/18 19:24 02/03/18 21:03 Temperature Pulse Rate 69 77 72 Respiratory Rate 18 16 Blood Pressure 185/79 H 188/72 H Pulse Oximetry 98 97 98 02/03/18 21:30 02/04/18 00:00 02/04/18 04:00 Temperature 97.6 F 97.9 F 97.2 F L Pulse Rate 73 80 63 Respiratory Rate 18 18 18 Blood Pressure 178/63 H 148/62 H 142/52 H Pulse Oximetry 96 94 L 94 L 02/04/18 08:00 02/04/18 09:00 02/04/18 12:00 Temperature 97.6 F Pulse Rate 66 61 64 Respiratory Rate 16 Blood Pressure 161/70 H Pulse Oximetry 95 Intake & Output 02/03/18 02/04/18 02/04/18 18:59 06:59 18:59 Intake Total 0 / 0 Output Total 400 / 400 350 / 350 Balance -400 / -400 -350 / -350 Weight 100 kg 99.3 kg Intake: Oral 0 / 0 Output: Urine 400 / 400 350 / 350 Other: # Voids 2 Weight On Admission 99.3 kg Narrative: Heart sounds regular rate and rhythm, no murmurs Clear lungs bilaterally, unlabored breathing No acute distress, unlabored. Awake and alert Results - Labs CBC & Chem 7: 02/04/18 03:37 02/04/18 03:37 Laboratory Results - last 24 hr 02/03/18 02/03/18 02/03/18 17:09 17:09 17:09 CBC w Diff Slide review pending WBC 8.6 RBC 4.06 Hgb 12.0 Hct 36.1 MCV 89.0 MCH 29.5 MCHC 33.2 RDW 15.4 Plt Count 213 MPV 8.5 Neut % (Auto) 78.7 H Lymph % (Auto) 11.0 [place] % (Auto) 6.1 Eos % (Auto) 1.7 Baso % (Auto) 2.5 H Neut # (Auto) 6.9 Lymph # (Auto) 0.9 L [place] # (Auto) 0.5 Eos # (Auto) 0.1 Baso # (Auto) 0.2 WBC Differential . Diff Scan Auto diff confirmed Differential Comment . Hypersegmented Neuts 1+ H PT INR APTT Sodium 138 Potassium 4.1 Chloride 105 Carbon Dioxide 24.4 Anion Gap 9 BUN 22 H Creatinine 1.90 H Estimated GFR 26 L POC Glucose Random Glucose 175 H Calcium 8.4 L Magnesium 1.5 Total Bilirubin 0.4 AST 59 H ALT 52 Alkaline Phosphatase 132 H Total Creatine Kinase 124 CK-MB (CK-2) 2.0 Troponin I 0.14 H B-Natriuretic Peptide 144 H Total Protein 7.6 Albumin 3.1 L Triglycerides Cholesterol LDL Cholesterol, Calc HDL Cholesterol Cholesterol/HDL Ratio Ur Collection Type Urine Color Urine Clarity Urine pH Ur Specific [place] Urine Protein Urine Glucose (UA) Urine Ketones Urine Occult Blood Urine Nitrate Urine Bilirubin Urine Urobilinogen Ur Leukocyte Esterase Ur Squamous Epith Cells Amorphous Sediment Micro UA Comment Ur Microscopic Review Urine Culture Comments Urine Collection Time 02/03/18 02/03/18 02/03/18 17:33 23:03 23:59 CBC w Diff WBC RBC Hgb Hct MCV MCH MCHC RDW Plt Count MPV Neut % (Auto) Lymph % (Auto) [place] % (Auto) Eos % (Auto) Baso % (Auto) Neut # (Auto) Lymph # (Auto) [place] # (Auto) Eos # (Auto) Baso # (Auto) WBC Differential Diff Scan Differential Comment Hypersegmented Neuts PT 11.7 H INR 1.2 APTT 29.3 Sodium Potassium Chloride Carbon Dioxide Anion Gap BUN Creatinine Estimated GFR POC Glucose Random Glucose Calcium Magnesium Total Bilirubin AST ALT Alkaline Phosphatase Total Creatine Kinase 87 CK-MB (CK-2) Troponin I 0.43 H D B-Natriuretic Peptide Total Protein Albumin Triglycerides Cholesterol LDL Cholesterol, Calc HDL Cholesterol Cholesterol/HDL Ratio Ur Collection Type Clean catch Urine Color Straw Urine Clarity Clear Urine pH 7.0 Ur Specific [place] 1.015 Urine Protein Negative Urine Glucose (UA) Negative Urine Ketones Negative Urine Occult Blood Negative Urine Nitrate Negative Urine Bilirubin Negative Urine Urobilinogen 0.2 Ur Leukocyte Esterase Negative Ur Squamous Epith Cells 6-10 H Amorphous Sediment Few H Micro UA Comment Culture not ind Ur Microscopic Review Microscopic reviewed Urine Culture Comments Culture not ind Urine Collection Time [id number] 02/04/18 02/04/18 02/04/18 03:37 03:37 03:37 CBC w Diff WBC 9.3 RBC 3.59 L Hgb 10.7 L Hct 32.3 L MCV 90.1 MCH 29.9 MCHC 33.2 RDW 16.2 Plt Count 200 MPV 8.5 Neut % (Auto) 79.8 H Lymph % (Auto) 11.1 [place] % (Auto) 7.7 Eos % (Auto) 1.1 Baso % (Auto) 0.3 Neut # (Auto) 7.4 Lymph # (Auto) 1.0 [place] # (Auto) 0.7 Eos # (Auto) 0.1 Baso # (Auto) 0.0 WBC Differential . Diff Scan Differential Comment Auto diff final Hypersegmented Neuts PT INR APTT Sodium 141 Potassium 3.8 Chloride 106 Carbon Dioxide 26.5 Anion Gap 9 BUN 23 H Creatinine 1.86 H Estimated GFR 26 L POC Glucose Random Glucose 140 H Calcium 8.1 L Magnesium Total Bilirubin 0.4 AST 47 H ALT 48 Alkaline Phosphatase 121 H Total Creatine Kinase 80 CK-MB (CK-2) Troponin I 0.40 H B-Natriuretic Peptide Total Protein 6.9 D Albumin 2.7 L Triglycerides 96 Cholesterol 111 L LDL Cholesterol, Calc 48 HDL Cholesterol 43.6 Cholesterol/HDL Ratio 2.54 Ur Collection Type Urine Color Urine Clarity Urine pH Ur Specific [place] Urine Protein Urine Glucose (UA) Urine Ketones Urine Occult Blood Urine Nitrate Urine Bilirubin Urine Urobilinogen Ur Leukocyte Esterase Ur Squamous Epith Cells Amorphous Sediment Micro UA Comment Ur Microscopic Review Urine Culture Comments Urine Collection Time 02/04/18 02/04/18 02/04/18 06:38 08:17 12:41 CBC w Diff WBC RBC Hgb Hct MCV MCH MCHC RDW Plt Count MPV Neut % (Auto) Lymph % (Auto) [place] % (Auto) Eos % (Auto) Baso % (Auto) Neut # (Auto) Lymph # (Auto) [place] # (Auto) Eos # (Auto) Baso # (Auto) WBC Differential Diff Scan Differential Comment Hypersegmented Neuts PT INR APTT 51.5 H D Sodium Potassium Chloride Carbon Dioxide Anion Gap BUN Creatinine Estimated GFR POC Glucose 117 H 108 Random Glucose Calcium Magnesium Total Bilirubin AST ALT Alkaline Phosphatase Total Creatine Kinase CK-MB (CK-2) Troponin I B-Natriuretic Peptide Total Protein Albumin Triglycerides Cholesterol LDL Cholesterol, Calc HDL Cholesterol Cholesterol/HDL Ratio Ur Collection Type Urine Color Urine Clarity Urine pH Ur Specific [place] Urine Protein Urine Glucose (UA) Urine Ketones Urine Occult Blood Urine Nitrate Urine Bilirubin Urine Urobilinogen Ur Leukocyte Esterase Ur Squamous Epith Cells Amorphous Sediment Micro UA Comment Ur Microscopic Review Urine Culture Comments Urine Collection Time - Imaging Impressions Chest X-Ray 02/03/18 16:56 CONCLUSION: No acute findings. Mild cardiomegaly. Assessment and Plan - Plan 77 y/o female with a recent diagnosis of chf and afib, ckd, hypothyroid, and diabetes presented to the ED with complaints of chest pressure. Chest pain/ NSTEMI -Continue aspirin, heparin drip, Lipitor -Cardiology following, will consider reevaluating patient tomorrow for cardiac cath, may eat today Afib, chronic, [id number] Score 5 age, female, Dm2, HTN) -Resume home medications Hypertension, chronic -home medications -Clonidine PRN Chronic Diastolic HF -Cont home Lasix CKD, chronic Creatine around baseline -Cont to monitor kidney function DM, chronic -ACCU checks with SSI -Hold home medications for now DVT prophylaxis: Heparin
--- NOTE | 2018-02-04 14:03 | ECG ---
Date Performed: 02/04/2018 Time Performed: 04:50:10 PTAGE: 77 years EKG: Sinus arrhythmia Prolonged QT interval Anteriolateral ST-T changes may be due to myocardial ischemia Abnormal ECG Prior ECG 02/03/2018 10.09 Since the PREVIOUS TRACING , no significant change noted DOCTOR: Bhavin Jennings Interpretating Date/Time 02/04/2018 14:02:12
[2018-02-05] MEDS: Levothyroxine 50 MCG Tablet PO SCH (05:18)
[2018-02-05 07:52] LABS: Hematocrit 31.3 % (35.0-46.0); Hemoglobin 10.5 gm/dL (11.6-15.3); Mean Corpuscular HGB Conc 33.5 % (32.0-36.0); Mean Corpuscular Hemoglobin 29.8 pg (27.0-34.0); Mean Platelet Volume 8.4 fL (7.0-11.0); Platelet Count 188 th/mm3 (150-450); Red Blood Count 3.51 mil/mm3 (4.00-5.30); White Blood Count 8.9 th/mm3 (4.0-11.0)
[2018-02-05 08:07] LABS: Potassium 3.3 meq/L (3.5-5.1)
[2018-02-05] MEDS: Pantoprazole Sodium 20 MG DR Tablet PO SCH ×2 (09:08→21:18)
[2018-02-05] MEDS: Lisinopril 20 MG Tablet PO SCH (09:08)
[2018-02-05] MEDS: Insulin NovoLOG Aspart Correctional Sugar Inj SQ SCH ×4 (09:08→21:18)
[2018-02-05] MEDS: dilTIAZem CD 240 MG Capsule PO SCH (09:08)
[2018-02-05] MEDS: Furosemide 40 MG Tablet PO SCH ×2 (09:08→21:18)
[2018-02-05] MEDS: Tiotropium Bromide 18 MCG/ACT Inhaler INH SCH (09:10)
[2018-02-05] MEDS: Sod Chloride 0.9% Inj 1,000 ML IV.SIG SCH (12:55)
--- NOTE | 2018-02-05 16:57 | P.PN ---
Subjective Interval history: No acute events reported overnight. Patient herself not having any chest pain today. Physical Exam Vital signs: Vital Signs 02/04/18 19:26 02/04/18 20:00 02/04/18 20:10 Temperature 97.5 F L Pulse Rate 80 62 Respiratory Rate 19 Blood Pressure 166/52 H Pulse Oximetry 96 94 L 02/04/18 23:55 02/05/18 00:00 02/05/18 04:00 Temperature 97.4 F L 97.7 F Pulse Rate 99 H 65 77 Respiratory Rate 17 15 Blood Pressure 162/74 H 158/62 H Pulse Oximetry 95 93 L 02/05/18 08:00 02/05/18 12:00 Temperature 97.9 F 98.0 F Pulse Rate 75 67 Respiratory Rate 18 18 Blood Pressure 166/70 H 171/72 H Pulse Oximetry 91 L 94 L Intake & Output 02/04/18 02/05/18 02/05/18 18:59 06:59 18:59 Intake Total 657.4 / 657.4 312.6 / 312.6 1000 / 1000 Output Total 2100 / 2100 1100 / 1100 Balance -1442.6 / -1442.6 -787.4 / -787.4 1000 / 1000 Weight 99 kg Intake: IV 177.4 / 177.4 72.6 / 72.6 1000 / 1000 Heparin/D5W 25,000 U/250 mL 25, 177.4 / 177.4 72.6 / 72.6 000 unit In 250 ml @ Per Protocol IV.CONT TITRATE PRN Rx #:[id number] NS Inj 1,000 ML @ 40 mls/hr IV. 1000 / 1000 SIG .Q24H GENE Rx#:[id number] Oral 480 / 480 240 / 240 Output: Urine 2100 / 2100 1100 / 1100 Other: # Bowel Movements 0 Narrative: No lower extremity edema noted today Heart sounds regular rate rhythm, no murmurs Clear lungs bilaterally, unlabored breathing Awake and alert, no acute distress Results - Labs CBC & Chem 7: 02/05/18 05:49 02/05/18 05:49 Laboratory Results - last 24 hr 02/04/18 02/05/18 02/05/18 19:45 05:49 05:49 WBC 8.9 RBC 3.51 L Hgb 10.5 L Hct 31.3 L MCV 89.0 MCH 29.8 MCHC 33.5 RDW 16.0 Plt Count 188 MPV 8.4 APTT 44.6 H Sodium Potassium Chloride Carbon Dioxide Anion Gap BUN Creatinine Estimated GFR POC Glucose 170 H Random Glucose Calcium 02/05/18 05:49 WBC RBC Hgb Hct MCV MCH MCHC RDW Plt Count MPV APTT Sodium 140 Potassium 3.3 L Chloride 105 Carbon Dioxide 26.0 Anion Gap 9 BUN 24 H Creatinine 1.86 H Estimated GFR 26 L POC Glucose Random Glucose 164 H Calcium 8.0 L Assessment and Plan - Plan 77 y/o female with a recent diagnosis of chf and afib, ckd, hypothyroid, and diabetes presented to the ED with complaints of chest pressure. Chest pain/ NSTEMI -Continue aspirin, heparin drip per cardiology, Lipitor -Cardiology following, pending reevaluation today, n.p.o. for possible procedure Afib, chronic, [id number] Score 5 age, female, Dm2, HTN) - home medications Hypertension, chronic -home medications -Clonidine PRN Chronic Diastolic HF -Cont home Lasix CKD, chronic Creatine around baseline -Cont to monitor kidney function DM, chronic -ACCU checks with SSI -Hold home medications for now DVT prophylaxis: Heparin
[2018-02-05] MEDS: Heparin Drip 25,000 UNIT/250 ML BAG IV.CONT PRN (21:21)
[2018-02-06] MEDS: Levothyroxine 50 MCG Tablet PO SCH (05:56)
[2018-02-06] MEDS: Lisinopril 20 MG Tablet PO SCH (08:35)
[2018-02-06] MEDS: dilTIAZem CD 240 MG Capsule PO SCH (08:35)
[2018-02-06] MEDS: Insulin NovoLOG Aspart Correctional Sugar Inj SQ SCH ×4 (08:35→20:42)
[2018-02-06] MEDS: Pantoprazole Sodium 20 MG DR Tablet PO SCH ×2 (08:36→20:41)
[2018-02-06] MEDS: Furosemide 40 MG Tablet PO SCH ×2 (08:36→20:41)
[2018-02-06] MEDS: Tiotropium Bromide 18 MCG/ACT Inhaler INH SCH (08:38)
[2018-02-06] MEDS: Sod Chloride 0.9% Inj 1,000 ML IV.SIG SCH ×2 (08:40→11:58)
[2018-02-06] MEDS ORDERED: dilTIAZem Inj 125 MG in Sodium Chlor 0.9% Inj 100 ML IV.CONT PRN (10:53)
[2018-02-06] MEDS: Metoprolol Tartrate 25 MG Tablet PO SCH ×2 (12:37→20:40)
--- NOTE | 2018-02-06 13:43 | P.PN ---
Subjective Interval history: Follow up for CP, PATEL: Patient seen and examined. No chest pain, positive for palpitations, short breath with activity. A. fib with RVR monitor, heart rate up to 140s. Remains n.p.o. for possible cardiac cath. Physical Exam Vital signs: Vital Signs 02/05/18 16:00 02/05/18 20:00 02/06/18 00:00 Temperature 97.4 F L 97.5 F L 97.9 F Pulse Rate 64 62 59 L Respiratory Rate 18 20 20 Blood Pressure 158/69 H 170/59 H 157/58 H Pulse Oximetry 95 95 94 L 02/06/18 04:00 02/06/18 08:00 02/06/18 09:00 Temperature 97.8 F 98.1 F Pulse Rate 64 77 64 Respiratory Rate 20 16 Blood Pressure 192/71 H 168/70 H Pulse Oximetry 92 L 94 L 02/06/18 12:30 Temperature Pulse Rate Respiratory Rate Blood Pressure Pulse Oximetry 96 Intake & Output 02/05/18 02/06/18 02/06/18 18:59 06:59 18:59 Intake Total 1708 / 1708 250 / 250 1000 / 1000 Output Total 600 / 600 Balance 1708 / 1708 -350 / -350 1000 / 1000 Weight 95.9 kg Intake: IV 1000 / 1000 250 / 250 1000 / 1000 Heparin/D5W 25,000 U/250 mL 25, 250 / 250 000 unit In 250 ml @ Per Protocol IV.CONT TITRATE PRN Rx #:[id number] NS Inj 1,000 ML @ 40 mls/hr IV. 1000 / 1000 1000 / 1000 SIG .Q24H GENE Rx#:[id number] Oral 708 / 708 Output: Urine 600 / 600 Other: # Voids 6 2 Date of Last Bowel Movement 02/04/18 02/04/18 Narrative: GENERAL: Well-nourished, well-developed patient in no apparent distress. SKIN: Warm and dry. HEAD: Atraumatic. Normocephalic. EYES: Pupils equal and round. No scleral icterus. No injection or drainage. ENT: No nasal bleeding or discharge. Mucous membranes pink and moist. NECK: Trachea midline. No JVD. CARDIOVASCULAR: S1-S2, irregularly irregular. No murmurs, no rubs, no gallops. RESPIRATORY: No accessory muscle use. Clear to auscultation. Breath sounds equal bilaterally. GASTROINTESTINAL: Abdomen soft, non-tender, nondistended. Hepatic and splenic margins not palpable. MUSCULOSKELETAL: Extremities without clubbing, cyanosis, or edema. No obvious deformities. NEUROLOGICAL: Awake and alert. No obvious cranial nerve deficits. Motor grossly within normal limits. Five out of 5 muscle strength in the arms and legs. Normal speech. PSYCHIATRIC: Appropriate mood and affect; insight and judgment normal. Results - Labs CBC & Chem 7: 02/05/18 05:49 02/05/18 05:49 Laboratory Results - last 24 hr 02/05/18 02/06/18 17:24 07:36 APTT 37.5 H POC Glucose 106 Assessment and Plan - Assessment (1) Atrial fibrillation with rapid ventricular response Code(s): I48.91 - Unspecified atrial fibrillation Status: Acute (2) NSTEMI (non-ST elevated myocardial infarction) Code(s): I21.4 - Non-ST elevation (NSTEMI) myocardial infarction Status: Acute (3) CKD (chronic kidney disease) stage 4, GFR 15-29 ml/min Code(s): N18.4 - Chronic kidney disease, stage 4 (severe) Status: Chronic (4) Elevated brain natriuretic peptide (BNP) level Code(s): R79.89 - Other specified abnormal findings of blood chemistry Status : Acute (5) Dyspnea Code(s): R06.00 - Dyspnea, unspecified Status: Acute - Plan 77 y/o female with a recent diagnosis of chf and afib, ckd, hypothyroid, and diabetes presented to the ED with complaints of chest pressure. Chest pain/ NSTEMI -Continue aspirin, heparin drip, Lipitor -Appreciate cardiology input, discussed with Dr. Coker. Carolann for diet, no cardiac cath -Continue nitroglycerin 1 inch every 6 Afib, chronic, [id number] Score 5 age, female, Dm2, HTN) A. fib with RVR, heart rate up to 140s -Continue heparin gtt for now, off Eliquis Continue Cardizem 240 mg p.o. daily Heart rate elevated, 140s. Will start Cardizem at 5 mg/hr -d/w card, will start BB also. If HR not controlled, poss cardioversion tomorrow Hypertension, chronic -home medications -Clonidine PRN Chronic Diastolic HF -Cont home Lasix 40 mg p.o. twice daily CKD, chronic Creatine around baseline -Cont to monitor kidney function -Avoid nephrotoxic agents DM, chronic -ACCU checks with SSI -Hold home medications for now DVT prophylaxis: Heparin GI prophylaxis: PPI Labs in the morning Code Status: Full code Discussed Condition With: RN, patient, Dr. Coker Discharge Planning: Poss dc 1-2 days (5) Dyspnea Qualifiers: Dyspnea type: shortness of breath Qualified Code(s): R06.02 - Shortness of breath; R06.00 - Dyspnea, unspecified; R06.01 - Orthopnea
[2018-02-06] MEDS: Heparin Drip 25,000 UNIT/250 ML BAG IV.CONT PRN (20:38)
[2018-02-07] MEDS: Levothyroxine 50 MCG Tablet PO SCH (05:27)
[2018-02-07] MEDS: Sod Chloride 0.9% Inj 1,000 ML IV.SIG SCH ×2 (05:29→13:17)
[2018-02-07] MEDS: Furosemide 40 MG Tablet PO SCH (09:06)
[2018-02-07] MEDS: Pantoprazole Sodium 20 MG DR Tablet PO SCH ×2 (09:07→21:19)
[2018-02-07] MEDS: Lisinopril 20 MG Tablet PO SCH (09:07)
[2018-02-07] MEDS: Metoprolol Tartrate 25 MG Tablet PO SCH ×2 (09:07→21:20)
[2018-02-07] MEDS: dilTIAZem CD 240 MG Capsule PO SCH (09:07)
[2018-02-07] MEDS: Tiotropium Bromide 18 MCG/ACT Inhaler INH SCH (09:09)
[2018-02-07] MEDS: Insulin NovoLOG Aspart Correctional Sugar Inj SQ SCH ×4 (09:10→21:20)
[2018-02-07 09:57] LABS: Hemoglobin 10.7 gm/dL (11.6-15.3); Mean Corpuscular HGB Conc 33.5 % (32.0-36.0); Mean Corpuscular Hemoglobin 30.3 pg (27.0-34.0); Mean Corpuscular Volume 90.3 fL (80.0-100.0); Mean Platelet Volume 8.5 fL (7.0-11.0); Platelet Count 197 th/mm3 (150-450); Red Blood Count 3.55 mil/mm3 (4.00-5.30); Red Cell Distribution Width 16.4 % (11.6-17.2); White Blood Count 8.1 th/mm3 (4.0-11.0)
[2018-02-07 10:20] LABS: Calcium 8.2 mg/dL (8.5-10.1); Potassium 3.5 meq/L (3.5-5.1)
--- NOTE | 2018-02-07 12:38 | P.PN ---
Subjective Interval history: Follow up for CP, PATEL: Patient seen and examined. Intermittent A. fib with RVR since yesterday, was put on Cardizem drip. Heart rate at times elevated up to 120s, Cardizem drip short off this morning as heart rate went down to 50. Complains of palpitations, no chest pressure, no shortness of breath. N.p.o. for possible cardioversion. Physical Exam Vital signs: Vital Signs 02/06/18 16:00 02/06/18 20:00 02/07/18 00:00 Temperature 97.2 F L 97.9 F Pulse Rate 55 L 64 55 L Respiratory Rate 18 20 Blood Pressure 115/51 L 152/65 H Pulse Oximetry 95 94 L 02/07/18 03:48 02/07/18 04:00 02/07/18 06:15 Temperature 97.8 F Pulse Rate 71 123 H Respiratory Rate 20 Blood Pressure 169/70 H 121/60 Pulse Oximetry 94 L 94 L 02/07/18 08:00 02/07/18 09:37 02/07/18 12:00 Temperature 97.5 F L 97.5 F L Pulse Rate 76 59 L Respiratory Rate 18 18 Blood Pressure 160/70 H 164/74 H Pulse Oximetry 94 L 92 L 94 L Intake & Output 02/06/18 02/07/18 02/07/18 18:59 06:59 18:59 Intake Total 2416 / 2416 1250 / 1250 Balance 2416 / 2416 1250 / 1250 Weight 95.7 kg Intake: IV 1000 / 1000 1250 / 1250 Heparin/D5W 25,000 U/250 mL 25, 250 / 250 000 unit In 250 ml @ Per Protocol IV.CONT TITRATE PRN Rx #:[id number] NS Inj 1,000 ML @ 40 mls/hr IV. 1000 / 1000 1000 / 1000 SIG .Q24H GENE Rx#:[id number] Oral 1416 / 1416 Other: # Voids 3 4 Date of Last Bowel Movement 02/04/18 02/06/18 Narrative: GENERAL: Well-nourished, well-developed patient in no apparent distress. SKIN: Warm and dry. HEAD: Atraumatic. Normocephalic. EYES: Pupils equal and round. No scleral icterus. No injection or drainage. ENT: No nasal bleeding or discharge. Mucous membranes pink and moist. NECK: Trachea midline. No JVD. CARDIOVASCULAR: S1-S2, irregularly irregular. No murmurs, no rubs, no gallops. RESPIRATORY: No accessory muscle use. Minimal exp. wheeze GASTROINTESTINAL: Abdomen soft, non-tender, nondistended. Hepatic and splenic margins not palpable. MUSCULOSKELETAL: Extremities without clubbing, cyanosis, or edema. No obvious deformities. NEUROLOGICAL: Awake and alert. No obvious cranial nerve deficits. Motor grossly within normal limits. Five out of 5 muscle strength in the arms and legs. Normal speech. PSYCHIATRIC: Appropriate mood and affect; insight and judgment normal. Results - Labs CBC & Chem 7: 02/07/18 08:42 02/07/18 08:42 Laboratory Results - last 24 hr 02/06/18 02/06/18 02/06/18 14:46 17:23 22:32 WBC RBC Hgb Hct MCV MCH MCHC RDW Plt Count MPV APTT 40.4 H 34.8 H Sodium Potassium Chloride Carbon Dioxide Anion Gap BUN Creatinine Estimated GFR POC Glucose 134 H Random Glucose Calcium 02/07/18 02/07/18 02/07/18 08:41 08:42 08:42 WBC 8.1 RBC 3.55 L Hgb 10.7 L Hct 32.0 L MCV 90.3 MCH 30.3 MCHC 33.5 RDW 16.4 Plt Count 197 MPV 8.5 APTT Sodium 139 Potassium 3.5 Chloride 102 Carbon Dioxide 28.0 Anion Gap 9 BUN 27 H Creatinine 2.29 H Estimated GFR 21 L POC Glucose 172 H Random Glucose 174 H Calcium 8.2 L 02/07/18 02/07/18 08:42 11:20 WBC RBC Hgb Hct MCV MCH MCHC RDW Plt Count MPV APTT 47.2 H D Sodium Potassium Chloride Carbon Dioxide Anion Gap BUN Creatinine Estimated GFR POC Glucose 173 H Random Glucose Calcium Microbiology 02/06/18 16:35 Stool Stool Occult Blood (ELLIOT) - Final Hemoccult positive Assessment and Plan - Assessment (1) Atrial fibrillation with rapid ventricular response Code(s): I48.91 - Unspecified atrial fibrillation Status: Acute (2) NSTEMI (non-ST elevated myocardial infarction) Code(s): I21.4 - Non-ST elevation (NSTEMI) myocardial infarction Status: Acute (3) CKD (chronic kidney disease) stage 4, GFR 15-29 ml/min Code(s): N18.4 - Chronic kidney disease, stage 4 (severe) Status: Chronic (4) Elevated brain natriuretic peptide (BNP) level Code(s): R79.89 - Other specified abnormal findings of blood chemistry Status : Acute (5) Dyspnea Code(s): R06.00 - Dyspnea, unspecified Status: Acute - Plan 77 y/o female with a recent diagnosis of chf and afib, ckd, hypothyroid, and diabetes presented to the ED with complaints of chest pressure. Chest pain/ NSTEMI -Continue aspirin, heparin drip, Lipitor -Appreciate cardiology input, discussed with Dr. Coker. Carolann for diet, no cardiac cath -Continue nitroglycerin 1 inch every 6 Afib, chronic, [id number] Score 5 age, female, Dm2, HTN) A. fib with RVR, heart rate up to 140s -Continue heparin gtt for now, off Eliquis Continue Cardizem 240 mg p.o. daily and Lopressor 25 mg p.o. twice daily Continue with Cardizem drip as needed. N.p.o. for possible cardioversion today Hypertension, chronic -home medications -Clonidine PRN Chronic Diastolic HF -Cont home Lasix 40 mg p.o. twice daily Acute on chronic CKD Creatinine noted trending up, 2.29 We will give normal saline at 50 an hour times 1 L Stop lisinopril, decrease Lasix to 40 mg p.o. daily -Avoid nephrotoxic agents -BMP in the morning DM, chronic -ACCU checks with SSI -Hold home medications for now DVT prophylaxis: Heparin GI prophylaxis: PPI Labs in the morning We will follow-up on cardiology recommendations Code Status: Full code Discussed Condition With: RN, patient, case management Discharge Planning: Poss dc 1-2 days (5) Dyspnea Qualifiers: Dyspnea type: shortness of breath Qualified Code(s): R06.02 - Shortness of breath; R06.00 - Dyspnea, unspecified; R06.01 - Orthopnea
[2018-02-07] MEDS ORDERED: Sod Chloride 0.9% Inj 1,000 ML IV.CONT SCH (12:45)
[2018-02-07] MEDS ORDERED: Potassium Chloride 25 MEQ Effervescent Tablet PO ONE (16:22)
[2018-02-08] MEDS: Levothyroxine 50 MCG Tablet PO SCH (05:28)
[2018-02-08] MEDS: Sod Chloride 0.9% Inj 1,000 ML IV.SIG SCH (05:29)
[2018-02-08 05:55] VITALS: TEMP 97.8
[2018-02-08] MEDS ORDERED: Furosemide 40 MG Tablet PO SCH (09:00)
[2018-02-08 09:10] VITALS: BP 187/79; PULSE 61; RESP 18; O2SAT 94
[2018-02-08] MEDS: Pantoprazole Sodium 20 MG DR Tablet PO SCH (09:12)
[2018-02-08] MEDS: dilTIAZem CD 240 MG Capsule PO SCH (09:12)
[2018-02-08] MEDS: Metoprolol Tartrate 25 MG Tablet PO SCH (09:12)
[2018-02-08] MEDS: Tiotropium Bromide 18 MCG/ACT Inhaler INH SCH (09:13)
[2018-02-08] MEDS: Insulin NovoLOG Aspart Correctional Sugar Inj SQ SCH (09:13)
[2018-02-08 09:18] LABS: Calcium 8.1 mg/dL (8.5-10.1); Carbon Dioxide 25.9 meq/L (21.0-32.0); Potassium 3.7 meq/L (3.5-5.1)
--- NOTE | 2018-02-08 09:40 | P.DCO ---
- Physical Therapy Order: Evaluate and treat - Home Health Nursing Order: Medical education, Signs/symptoms of disease process, Diabetic education , Nursing assessment with vital signs - Case Management Consult Yes - Certification I have seen patient Marisela Collier on 02/08/18. My clinical findings support the need for the requested home health care services because: afib RVR, unsteady, uses walker Deconditioned with increased weakness, Need for psychosocial assistance I certify that my clinical findings support that this patient is homebound because: Need for psychosocial assistance
--- NOTE | 2018-02-08 10:41 | P.PN ---
Subjective Interval history: Follow up for CP, PATEL: Patient seen and examined. No chest pain, no shortness of breath. Has been sinus rhythm/sinus bradycardia overnight, no more episodes of A. fib with RVR. Has occasional cough and wheezing mostly in the morning which is chronic. Continues to make urine. Creatinine remains at 2. Indicates that she wants to follow-up with primary care as outpatient and be referred to a bottom filler. She has been told by her PCP that her kidney function was declining. Indicates that she avoids NSAIDs however, recently started taking Voltaren about a month ago and agrees to stop. Anxious to go home. She resides with her sister and has a good support network at home. Physical Exam Vital signs: Vital Signs 02/07/18 12:00 02/07/18 16:00 02/07/18 20:00 Temperature 97.5 F L 97.4 F L 97.9 F Pulse Rate 61 52 L 66 Respiratory Rate 18 17 21 Blood Pressure 164/74 H 141/70 H 122/60 Pulse Oximetry 94 L 95 93 L 02/08/18 00:00 02/08/18 04:00 02/08/18 07:52 Temperature 97.7 F 97.8 F Pulse Rate 66 63 58 L Respiratory Rate 20 21 Blood Pressure 130/60 155/70 H Pulse Oximetry 91 L 93 L 02/08/18 08:00 Temperature 97.8 F Pulse Rate 61 Respiratory Rate 18 Blood Pressure 187/79 H Pulse Oximetry 94 L Intake & Output 02/07/18 02/08/18 02/08/18 18:59 06:59 18:59 Intake Total 230 / 230 1909 / 1909 Balance 230 / 230 1909 / 1909 Weight 95.7 kg Intake: IV 230 / 230 1000 / 1000 Heparin/D5W 25,000 U/250 mL 25, 230 / 230 000 unit In 250 ml @ Per Protocol IV.CONT TITRATE PRN Rx #:[id number] NS Inj 1,000 ML @ 40 mls/hr IV. 1000 / 1000 SIG .Q24H GENE Rx#:[id number] Oral 910 / 910 Other: # Voids 3 5 Date of Last Bowel Movement 02/06/18 02/06/18 02/06/18 # Bowel Movements 0 0 Narrative: GENERAL: Well-nourished, well-developed patient in no apparent distress. SKIN: Warm and dry. HEAD: Atraumatic. Normocephalic. EYES: Pupils equal and round. No scleral icterus. No injection or drainage. ENT: No nasal bleeding or discharge. Mucous membranes pink and moist. NECK: Trachea midline. No JVD. CARDIOVASCULAR: S1-S2, unable to detect any murmurs rubs or gallops. RESPIRATORY: No accessory muscle use. Minimal exp. wheeze GASTROINTESTINAL: Abdomen soft, non-tender, nondistended. Hepatic and splenic margins not palpable. MUSCULOSKELETAL: Extremities without clubbing, cyanosis, or edema. No obvious deformities. NEUROLOGICAL: Awake and alert. No obvious cranial nerve deficits. Motor grossly within normal limits. Five out of 5 muscle strength in the arms and legs. Normal speech. PSYCHIATRIC: Appropriate mood and affect; insight and judgment normal. Results - Labs CBC & Chem 7: 02/07/18 08:42 02/08/18 07:01 Laboratory Results - last 24 hr 02/07/18 02/07/18 02/07/18 11:20 16:09 16:28 APTT 30.2 H D Sodium Potassium Chloride Carbon Dioxide Anion Gap BUN Creatinine Estimated GFR POC Glucose 173 H 145 H Random Glucose Calcium 02/07/18 02/08/18 02/08/18 20:18 07:01 07:11 APTT Sodium 140 Potassium 3.7 Chloride 104 Carbon Dioxide 25.9 Anion Gap 10 BUN 29 H Creatinine 2.20 H Estimated GFR 22 L POC Glucose 253 H 182 H Random Glucose 185 H Calcium 8.1 L Assessment and Plan - Assessment (1) Atrial fibrillation with rapid ventricular response Code(s): I48.91 - Unspecified atrial fibrillation Status: Acute (2) NSTEMI (non-ST elevated myocardial infarction) Code(s): I21.4 - Non-ST elevation (NSTEMI) myocardial infarction Status: Acute (3) CKD (chronic kidney disease) stage 4, GFR 15-29 ml/min Code(s): N18.4 - Chronic kidney disease, stage 4 (severe) Status: Chronic (4) Elevated brain natriuretic peptide (BNP) level Code(s): R79.89 - Other specified abnormal findings of blood chemistry Status : Acute (5) Dyspnea Code(s): R06.00 - Dyspnea, unspecified Status: Acute - Plan 77 y/o female with a recent diagnosis of chf and afib, ckd, hypothyroid, and diabetes presented to the ED with complaints of chest pressure. Chest pain/ NSTEMI -Continue aspirin, heparin drip, Lipitor -Appreciate cardiology input -Nitropaste Afib, chronic, [id number] Score 5 age, female, Dm2, HTN) Initially with A. fib with RVR, heart rate up to 140s Heart rate markedly improved, sinus rhythm/sinus bradycardia overnight. No more episodes of A. fib with RVR Discussed with Dr. Coker yesterday, no cardioversion was needed as her heart rate stabilized. Patient okay for discharge today if her heart rate remained stable. -Eliquis was resumed last night Continue Cardizem 240 mg p.o. daily and Lopressor 25 mg p.o. twice daily Hypertension, chronic -home medications -Clonidine PRN Chronic Diastolic HF -Cont home Lasix 40 mg p.o. twice daily Acute on chronic CKD Creatinine noted trending up, 2.29 Patient with known chronic kidney disease, was told by her PCP that renal function was declining. Had not been referred to a bottom filler yet. Was started on Voltaren approximately a month ago. Was given normal saline times 1 L -Lisinopril stopped, Lasix decreased to 40 daily -Avoid nephrotoxic agents, NSAIDs. Voltaren discontinue Stop lisinopril, decrease Lasix to 40 mg p.o. daily -Avoid nephrotoxic agents -creat minimally improved, making urine. Pt. wants to f/u as OP with PCP for referral to nephrology. Instructed to avoid NSAIDs, maintain p.o. fluids. Instructed to stop taking Voltaren. Informed not to take lisinopril until she sees her PCP tomorrow. Lasix was also decreased to 40 once a day. DM, chronic -ACCU checks with SSI -Hold home medications for now DVT prophylaxis: Heparin GI prophylaxis: PPI Case management consultation for home health care Physical therapy evaluated, no PT require Patient stable for discharge Has an appointment with PCP for tomorrow morning Follow-up with cardiology 1-2 weeks Follow heart healthy diet, limit protein, encourage p.o. fluids Activity as tolerated Reviewed medications with patient and sister in detail Code Status: Full code Discussed Condition With: RN, pt, sister, CM Discharge Planning: DC home today with [facility] (5) Dyspnea Qualifiers: Dyspnea type: shortness of breath Qualified Code(s): R06.02 - Shortness of breath; R06.00 - Dyspnea, unspecified; R06.01 - Orthopnea
--- NOTE | 2018-02-08 11:08 | P.DS ---
Date of admission: 02/03/18 19:25 Primary care physician: Hansel Lr MD Attending physician on discharge: Nahomi Hawk Anticipated date of discharge: 02/08/18 Brief History from admission: 77 y/o female with a recent diagnosis of chf and afib, ckd, hypothyroid, and diabetes presented to the ED with complaints of chest pressure. She states she was out shopping today and felt chest pressure in the center of her chest, constant, 7/10, with associated nausea, sob, heart palpitations and diaphoresis , no radiation to her jaw or extremities. She states the pain is better when she rests. She was recently discharged on 01/29 on Lasix and Cardizem and she states she has been compliant with medications. DS: Diagnosis - Discharge Diagnosis (1) Atrial fibrillation with rapid ventricular response Status: Acute (2) NSTEMI (non-ST elevated myocardial infarction) Status: Acute (3) CKD (chronic kidney disease) stage 4, GFR 15-29 ml/min Status: Chronic (4) Elevated brain natriuretic peptide (BNP) level Status: Acute (5) Dyspnea Status: Acute DS: Medications - Discharge Medications Prescriptions: metoprolol tartrate 25 mg PO BID 30 Days #60 tab DS: Summary Hospital Course: 77 y/o female with a recent diagnosis of chf and afib, ckd, hypothyroid, and diabetes presented to the ED with complaints of chest pressure. She states she was out shopping and felt chest pressure in the center of her chest, constant, 7/10, with associated nausea, sob, heart palpitations and diaphoresis, no radiation to her jaw or extremities. She states the pain is better when she rests. She was recently discharged on 01/29 on Lasix and Cardizem and she states she has been compliant with medications. Patient was admitted, serial cardiac troponin were ordered. She was put on continuous cardiac telemetry. Troponins were noted elevated, she was found positive for non-ST segment elevation. Cardiology evaluated. Recommended to continue aspirin, Lipitor. Eliquis was stopped and patient was put on heparin drip for the possibility of cardiac cath. Patient also with history of A. fib, she went into RVR. She was put on a Cardizem drip and was started on beta- blockers. Cardiology reevaluated, recommended no cardiac cath but possible cardioversion if heart rate did not respond. Heart rate improved, cardioversion was put on hold. Patient was noted with elevated creatinine, she received 1 L normal saline over 24 hours. Her lisinopril was stopped as well as Voltaren. Lasix was decreased to 40 daily. Patient was known to have chronic kidney disease and was told by her PCP that her renal function was declining. She had not been referred to a utilities manager yet. Creatinine minimally improved on follow up labs, patient was making urine. Patient wanted to follow-up as outpatient with PCP for referral to nephrology. An appointment was made for the next day with her PCP. Patient was instructed to avoid NSAIDs , maintain p.o. fluids. Was instructed to stop taking Voltaren. She was informed not to take lisinopril until she saw her PCP. Patient symptoms improve , she had no further chest pain and no A. fib with RVR. Cardiology cleared for dc. Physical therapy was consulted and assisted with mobility. Case management was consulted and arrange home health care. Patient was discharged home in stable condition. - Time Spent with Patient Total time spent providing and/or coordinating discharge services: 40 minutes Greater than 30 minutes - Quality: VTE Deep Vein Thrombosis/Pulmonary Embolism Present on Admission: No Exam Vital signs: Vital Signs 02/07/18 12:00 02/07/18 16:00 02/07/18 20:00 Temperature 97.5 F L 97.4 F L 97.9 F Pulse Rate 61 52 L 66 Respiratory Rate 18 17 21 Blood Pressure 164/74 H 141/70 H 122/60 Pulse Oximetry 94 L 95 93 L 02/08/18 00:00 02/08/18 04:00 02/08/18 07:52 Temperature 97.7 F 97.8 F Pulse Rate 66 63 58 L Respiratory Rate 20 21 Blood Pressure 130/60 155/70 H Pulse Oximetry 91 L 93 L 02/08/18 08:00 Temperature 97.8 F Pulse Rate 61 Respiratory Rate 18 Blood Pressure 187/79 H Pulse Oximetry 94 L Intake & Output 02/07/18 02/08/18 02/08/18 18:59 06:59 18:59 Intake Total 260 / 260 1909 / 1909 200 / 200 Balance 260 / 260 1909 / 1909 200 / 200 Weight 95.7 kg Intake: IV 260 / 260 1000 / 1000 200 / 200 Heparin/D5W 25,000 U/250 mL 25, 230 / 230 000 unit In 250 ml @ Per Protocol IV.CONT TITRATE PRN Rx #:[id number] NS Inj 1,000 ML @ 50 mls/hr IV. 200 / 200 CONT .Q20H GENE Rx#:[id number] Cardizem Inj 125 MG In NS Inj 30 / 30 100 ML @ 5 MG/HR 5 mls/hr IV. CONT TITRATE PRN Rx#:[id number] NS Inj 1,000 ML @ 40 mls/hr IV. 1000 / 1000 SIG .Q24H GENE Rx#:[id number] Oral 910 / 910 Other: # Voids 3 5 Date of Last Bowel Movement 02/06/18 02/06/18 02/06/18 # Bowel Movements 0 0 Results Procedures completed during hospitalization: NONE Labs on day of discharge: Labs from last 24 hours 02/08/18 02/08/18 02/07/18 07:11 07:01 20:18 APTT Sodium 140 Potassium 3.7 Chloride 104 Carbon Dioxide 25.9 Anion Gap 10 BUN 29 H Creatinine 2.20 H Estimated GFR 22 L POC Glucose 182 H 253 H Random Glucose 185 H Calcium 8.1 L 02/07/18 02/07/18 02/07/18 16:28 16:09 11:20 APTT 30.2 H D Sodium Potassium Chloride Carbon Dioxide Anion Gap BUN Creatinine Estimated GFR POC Glucose 145 H 173 H Random Glucose Calcium - Impressions ITS Impressions Chest X-Ray 02/03/18 16:56 CONCLUSION: No acute findings. Mild cardiomegaly. Discharge Plan - Discharge Disposition Patient Disposition: Discharge Home - Discharge Condition Condition: Stable - Discharge Order Discharge Orders: Discharge Order (Routine); Ordered 02/08/18 Ordered By: Chantale Parish - Discharge Details Anticipated Discharge Date: 02/08/18 - Physicians Team Primary Care Provider: Hansel Lr Attending Provider: Nahomi Hawk Other Providers: Colleen Miranda MD
== END 2018-02-08 10:40 | disposition home or self-care (01) ==
LOC: PHED 16:42 → PHEDA 19:25 → N04 21:29
PROVIDERS: ADMIT Family Medicine; ATTEND Family Medicine